=== PATIENT | male | born 1940 | race Caucasian/White ===

== ENCOUNTER 2019-03-30 09:55 | Observation (INO) | payer MEDICARE ==
[2019-03-30] MEDS ORDERED: PANTOPRAZOLE 40 MG/10 ML VIAL IVP STA (10:36)
[2019-03-30] MEDS ORDERED: SODIUM CHLORIDE 0.9% 1,000 ML IV STA (10:36)
--- NOTE | 2019-03-30 10:53 | ED ---
GI Bleed HPI - General Chief complaint: GI Bleed Stated complaint: Blood in stool Time Seen by Provider: 03/30/19 10:08 Source: patient, RN notes reviewed Mode of arrival: ambulatory Limitations: no limitations - History of Present Illness Initial comments: This 79-year-old male presents emergency Department with chief complaint of rectal bleeding. Patient states he was started on antibiotics a few days ago for cellulitis of his lower extremity which is more chronic issues secondary to swelling. Patient states that he was placed on Keflex and that he now has started to have a large amount of rectal bleeding. Patient states that it is bright red blood he does get occasionally get some abdominal cramping. Patient's had a colonoscopy in the past with mild findings of diverticulosis no other findings in which this was approximately a year and half ago. Patient does take Eliquis currently. Patient denies any fevers or chills. Patient states he feels that he has lost a large amount of blood in which he is had several episodes of bright red blood. - Related Data Home Medications Medication Instructions Recorded Confirmed Apixaban [Eliquis] 2.5 mg PO BID 03/30/19 03/30/19 Aspirin EC [Ecotrin Low Dose] 81 mg PO W/SUPPER 03/30/19 03/30/19 Cephalexin [Keflex] 500 mg PO Q6H 03/30/19 03/30/19 Focus Select 1 tab PO BID 03/30/19 03/30/19 Furosemide [Lasix] 60 mg PO DAILY 03/30/19 03/30/19 Metoprolol Succinate (ER) [Toprol 25 mg PO DAILY 03/30/19 03/30/19 Xl] Omeprazole 20 mg PO DAILY 03/30/19 03/30/19 Potassium Chloride [Klor-Con 20] 20 meq PO DAILY 03/30/19 03/30/19 Simvastatin [Zocor] 40 mg PO HS 03/30/19 03/30/19 Allergies Allergy/AdvReac Type Severity Reaction Status Date / Time No Known Allergies Allergy Verified 03/30/19 10:21 Review of Systems ROS Statement: Those systems with pertinent positive or pertinent negative responses have been documented in the HPI. ROS Other: All systems not noted in ROS Statement are negative. Past Medical History Past Medical History: Atrial Fibrillation, Heart Failure, GERD/Reflux, Hyperl ipidemia, Hypertension History of Any Multi-Drug Resistant Organisms: None Reported Past Surgical History: Cholecystectomy, Coronary Bypass/CABG Additional Past Surgical History / Comment(s): CABG (4 vessel) 1997 Past Psychological History: No Psychological Hx Reported Smoking Status: Never smoker Past Alcohol Use History: Occasional Past Drug Use History: None Reported General Exam Limitations: no limitations General appearance: alert, in no apparent distress Head exam: Present: atraumatic, normocephalic, normal inspection Eye exam: Present: normal appearance, PERRL, EOMI. Absent: scleral icterus, con junctival injection, periorbital swelling ENT exam: Present: normal exam, mucous membranes moist Neck exam: Present: normal inspection. Absent: tenderness, meningismus, lymphadenopathy Respiratory exam: Present: normal lung sounds bilaterally. Absent: respiratory distress, wheezes, rales, rhonchi, stridor Cardiovascular Exam: Present: normal rhythm, tachycardia, normal heart sounds. Absent: systolic murmur, diastolic murmur, rubs, gallop, clicks GI/Abdominal exam: Present: soft, normal bowel sounds. Absent: distended, tenderness, guarding, rebound, rigid Course Vital Signs 03/30/19 03/30/19 09:59 11:00 Temperature 97.6 F Pulse Rate 105 H 89 Respiratory 18 18 Rate Blood Pressure 144/93 115/89 O2 Sat by Pulse 96 92 L Oximetry Medical Decision Making - Medical Decision Making 79-year-old male presents emergency department for rectal bleeding. Patient does have bright red blood per rectum emergency department. Hemoglobin is stable patient will be admitted secondary to GI bleed with anticoagulants on board. - Lab Data Result diagrams: 03/30/19 10:55 03/30/19 10:55 Lab Results 03/30/19 03/30/19 03/30/19 Range/Units 10:41 10:55 10:55 WBC 11.6 H (3.8-10.6) k/uL RBC 5.31 (4.30-5.90) m/uL Hgb 16.7 (13.0-17.5) gm/dL Hct 50.2 (39.0-53.0) % MCV 94.6 (80.0-100.0) fL MCH 31.4 (25.0-35.0) pg MCHC 33.2 (31.0-37.0) g/dL RDW 12.7 (11.5-15.5) % Plt Count 348 (150-450) k/uL Neutrophils % 76 % Lymphocytes % 15 % Monocytes % 4 % Eosinophils % 2 % Basophils % 0 % Neutrophils # 8.8 H (1.3-7.7) k/uL Lymphocytes # 1.8 (1.0-4.8) k/uL Monocytes # 0.5 (0-1.0) k/uL Eosinophils # 0.2 (0-0.7) k/uL Basophils # 0.1 (0-0.2) k/uL PT (9.0-12.0) sec INR (<1.2) APTT (22.0-30.0) sec Sodium 142 (137-145) mmol/L Potassium 4.8 (3.5-5.1) mmol/L Chloride 108 H (98-107) mmol/L Carbon Dioxide 22 (22-30) mmol/L Anion Gap 12 mmol/L BUN 33 H (9-20) mg/dL Creatinine 1.01 (0.66-1.25) mg/dL Est GFR (CKD-EPI)AfAm 80 (>60 ml/min/1.73 sqM) Est GFR (CKD-EPI)NonAf 70 (>60 ml/min/1.73 sqM) Glucose 126 H (74-99) mg/dL Plasma Lactic Acid Nabil (0.7-2.0) mmol/L Calcium 9.9 (8.4-10.2) mg/dL Magnesium 2.0 (1.6-2.3) mg/dL Total Bilirubin 1.0 (0.2-1.3) mg/dL AST 16 L (17-59) U/L ALT 17 L (21-72) U/L Alkaline Phosphatase 104 (38-126) U/L Total Protein 7.2 (6.3-8.2) g/dL Albumin 4.5 (3.5-5.0) g/dL Stool Occult Blood Positive (Negative) 03/30/19 03/30/19 Range/Units 10:55 10:55 WBC (3.8-10.6) k/uL RBC (4.30-5.90) m/uL Hgb (13.0-17.5) gm/dL Hct (39.0-53.0) % MCV (80.0-100.0) fL MCH (25.0-35.0) pg MCHC (31.0-37.0) g/dL RDW (11.5-15.5) % Plt Count (150-450) k/uL Neutrophils % % Lymphocytes % % Monocytes % % Eosinophils % % Basophils % % Neutrophils # (1.3-7.7) k/uL Lymphocytes # (1.0-4.8) k/uL Monocytes # (0-1.0) k/uL Eosinophils # (0-0.7) k/uL Basophils # (0-0.2) k/uL PT 10.3 (9.0-12.0) sec INR 1.0 (<1.2) APTT 26.2 (22.0-30.0) sec Sodium (137-145) mmol/L Potassium (3.5-5.1) mmol/L Chloride (98-107) mmol/L Carbon Dioxide (22-30) mmol/L Anion Gap mmol/L BUN (9-20) mg/dL Creatinine (0.66-1.25) mg/dL Est GFR (CKD-EPI)AfAm (>60 ml/min/1.73 sqM) Est GFR (CKD-EPI)NonAf (>60 ml/min/1.73 sqM) Glucose (74-99) mg/dL Plasma Lactic Acid Nabil 1.6 (0.7-2.0) mmol/L Calcium (8.4-10.2) mg/dL Magnesium (1.6-2.3) mg/dL Total Bilirubin (0.2-1.3) mg/dL AST (17-59) U/L ALT (21-72) U/L Alkaline Phosphatase (38-126) U/L Total Protein (6.3-8.2) g/dL Albumin (3.5-5.0) g/dL Stool Occult Blood (Negative) Disposition Clinical Impression: GI bleed Disposition: ADMITTED IP TO THIS [facility] Condition: Stable Referrals: None,Stated [Primary Care Provider] - 1-2 days
[2019-03-30 11:09] LABS: Basophils # (A) 0.1 k/uL (0-0.2); Basophils % (A) 0 %; Eosinophils # (A) 0.2 k/uL (0-0.7); Eosinophils % (A) 2 %; HCT 50.2 % (39.0-53.0); HGB 16.7 gm/dL (13.0-17.5); Lymphocytes # (A) 1.8 k/uL (1.0-4.8); Lymphocytes % (A) 15 %; MCH 31.4 pg (25.0-35.0); MCHC 33.2 g/dL (31.0-37.0); MCV 94.6 fL (80.0-100.0); Monocytes # (A) 0.5 k/uL (0-1.0); Monocytes % (A) 4 %; Neutrophils # (A) 8.8 k/uL (1.3-7.7); Neutrophils % (A) 76 %; Platelet Count 348 k/uL (150-450); RBC 5.31 m/uL (4.30-5.90); RDW 12.7 % (11.5-15.5); WBC 11.6 k/uL (3.8-10.6)
[2019-03-30 11:20] LABS: Partial Thromboplastin Time 26.2 sec (22.0-30.0); Prothrombin Time 10.3 sec (9.0-12.0)
[2019-03-30 11:26] LABS: Albumin 4.5 g/dL (3.5-5.0); Calcium 9.9 mg/dL (8.4-10.2); Potassium 4.8 mmol/L (3.5-5.1); Total Protein 7.2 g/dL (6.3-8.2)
[2019-03-30] MEDS ORDERED: ACETAMINOPHEN TAB 325 MG TAB PO PRN (12:21)
[2019-03-30] MEDS ORDERED: NALOXONE 0.4 MG/ML 1 ML VIAL IV PRN (12:21)
[2019-03-30] MEDS ORDERED: ONDANSETRON 4 MG/2 ML VIAL IVP PRN (12:21)
--- NOTE | 2019-03-30 14:47 | P.HPIM ---
History of Present Illness H&P Date: 03/30/19 Chief Complaint: Bloody stools The patient is a 79-year-old male with a past with a history of coronary artery disease, essential hypertension, atrial fibrillation on anticoagulation with Eliquis that presents to ER with chief complaint of blood in his stools and diarrhea. Apparently the patient has been in normal state of health until this past Thursday when he presented to urgent care and was diagnosed with left lower extremity cellulitis and was started on Keflex, the patient started his medications on Thursday and since then has been having severe diarrhea changing to bloody stools over the last 5-7 bowel movements, the patient denies any severe nausea, he reported lower abdominal pain which is since resolved. The patient to his diarrhea to his Keflex and therefore discontinued it on Thursday, the patient denies any subjective fevers chills or night sweats. The patient denies any history of prior GI bleed, reports his last colonoscopy was approximately 2 years ago and at that time reported that he had polyps and diverticulosis, he also reports a history of hemorrhoids. The patient denies any significant NSAID use. In the ER had a conference and workup he had a positive stool occult, WBC count was 11.6 hemoglobin 16.7, Platelet 348, BUS was 33 creatinine 1.01. 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 Past Psychological History: No Psychological Hx Reported Smoking Status: Never smoker Past Alcohol Use History: Occasional Past Drug Use History: None Reported Medications and Allergies Home Medications Medication Instructions Recorded Confirmed Type Apixaban [Eliquis] 2.5 mg PO BID 03/30/19 03/30/19 History Aspirin EC [Ecotrin Low Dose] 81 mg PO W/SUPPER 03/30/19 03/30/19 History Cephalexin [Keflex] 500 mg PO Q6H 03/30/19 03/30/19 History Focus Select 1 tab PO BID 03/30/19 03/30/19 History Furosemide [Lasix] 60 mg PO DAILY 03/30/19 03/30/19 History Metoprolol Succinate (ER) [Toprol 25 mg PO DAILY 03/30/19 03/30/19 History Xl] Omeprazole 20 mg PO DAILY 03/30/19 03/30/19 History Potassium Chloride [Klor-Con 20] 20 meq PO DAILY 03/30/19 03/30/19 History Simvastatin [Zocor] 40 mg PO HS 03/30/19 03/30/19 History Allergies Allergy/AdvReac Type Severity Reaction Status Date / Time No Known Allergies Allergy Verified 03/30/19 10:21 Physical Exam Vitals: Vital Signs Temp Pulse Resp BP BP Pulse Ox 03/30/19 13:20 97.7 F 16 135/90 97 03/30/19 12:59 97.8 F 89 18 117/81 98 03/30/19 12:40 92 18 123/93 97 03/30/19 12:30 87 18 123/93 98 03/30/19 11:00 89 18 115/89 92 L 03/30/19 09:59 97.6 F 105 H 18 144/93 96 Intake and Output 03/29/19 03/30/19 03/30/19 22:59 06:59 14:59 Intake Total 520 Balance 520 Intake: Oral 520 Other: # Voids 1 Weight 102.058 kg Constitutional: No acute distress, conversant, pleasant Eyes: Anicteric sclerae, moist conjunctiva, no lid-lag, PERRLA ENMT: NC/AT,Oropharynx clear, no erythema, exudates Neck:Supple, FROM, no masses, or JVD, No carotid bruits; No thyromegaly Lungs: Clear to auscultation, Clear to percussion, Normal respiratory effort, no accessory muscle use Cardiovascular: Heart regular in rate and rhythm, No murmurs, gallops, or rubs no peripheral edema Abdominal: Soft Nontender, nom distended, no guarding, no rebound or rigidity, Normoactive bowel sounds No hepatomegaly, No splenomegaly, No palpable mass No abdominal wall hernia noted Skin: Normal temperature, tone, texture, turgor, No induration No subcutaneous nodules, No rash, lesions, No ulcers Extremities:No digital cyanosis No clubbing, Pedal pulses intact and symmetrical Radial pulses intact and symmetrical Normal gait and station, No calf tenderness Psychiatric: Alert and oriented to person, place and time, Appropriate affect Intact judgement Neuro: Muscles Strength 5/5 in all 4 extremities, Sensation to light touch grossly present throughout, Cranial nerves II-XII grossly intact. No focal sensory deficits Results CBC & Chem 7: 03/30/19 10:55 03/30/19 10:55 Labs: Abnormal Lab Results - Last 24 Hours (Table) 03/30/19 03/30/19 Range/Units 10:55 10:55 WBC 11.6 H (3.8-10.6) k/uL Neutrophils # 8.8 H (1.3-7.7) k/uL Chloride 108 H (98-107) mmol/L BUN 33 H (9-20) mg/dL Glucose 126 H (74-99) mg/dL AST 16 L (17-59) U/L ALT 17 L (21-72) U/L Assessment and Plan (1) GI bleed Current Visit: Yes Status: Acute Code(s): K92.2 - GASTROINTESTINAL HE MORRHAGE, UNSPECIFIED SNOMED Code(s): 98373714 (2) Atrial fibrillation Current Visit: Yes Status: Acute Code(s): I48.91 - UNSPECIFIED ATRIAL FIBRILLATION SNOMED Code(s): 66194999 (3) Coronary artery disease Current Visit: Yes Status: Acute Code(s): I25.10 - ATHSCL HEART DISEASE OF [place] CORONARY ARTERY W/O ANG PCTRS SNOMED Code(s): 61370889 (4) History of hemorrhoids Current Visit: Yes Status: Acute Code(s): Z87.19 - PERSONAL HISTORY OF OTHER DISEASES OF THE DIGESTIVE SYSTEM SNOMED Code(s): 390757911 (5) History of cellulitis Current Visit: Yes Status: Acute Code(s): Z87.2 - PERSONAL HISTORY OF D ISEASES OF THE SKIN, SUBCU SNOMED Code(s): 887500586 Plan: The patient is in observation anticipate a less than 2 midnight stay with concern for lower GI bleed after presenting with bloody stools positive Hemoccult noted in the ED.Given patient's history suspect bleeding hemorrhoid versus diverticular bleed, plans to consult GI for further evaluation patient possibly needs a repeat colonoscopy Hemoglobin stable, we'll continue to trend his CBC, continue Protonix. We'll hold his aspirin and DOAC, we will continue to follow the patient's clinical course. He reports a history of cellulitis and reports side effects to [place] being severe diarrhea, we will start the patient on clindamycin instead CODE STATUS: DO NOT RESUSCITATE Anticipated discharge 1-2 days Surrogate decision-maker : ET Prophylaxis SCDs and PPI therapy
[2019-03-30 18:37] LABS: Basophils % (A) 0 %; Eosinophils # (A) 0.2 k/uL (0-0.7); Eosinophils % (A) 2 %; HCT 46.7 % (39.0-53.0); HGB 15.4 gm/dL (13.0-17.5); Lymphocytes # (A) 1.8 k/uL (1.0-4.8); Lymphocytes % (A) 18 %; MCH 31.9 pg (25.0-35.0); MCHC 32.9 g/dL (31.0-37.0); MCV 96.9 fL (80.0-100.0); Monocytes # (A) 0.4 k/uL (0-1.0); Monocytes % (A) 4 %; Neutrophils # (A) 7.5 k/uL (1.3-7.7); Neutrophils % (A) 73 %; Platelet Count 334 k/uL (150-450); RBC 4.82 m/uL (4.30-5.90); RDW 12.9 % (11.5-15.5); WBC 10.3 k/uL (3.8-10.6)
[2019-03-30] MEDS: CLINDAMYCIN 150 MG CAP PO SCH (22:11)
[2019-03-30] MEDS: ATORVASTATIN 20 MG TAB PO SCH (22:11)
[2019-03-30] MEDS: VIT A,C & E-LUTEIN-MINERALS 1 EACH TAB PO SCH (22:12)
[2019-03-31 00:51] LABS: Basophils # (A) 0.1 k/uL (0-0.2); Basophils % (A) 1 %; Eosinophils # (A) 0.3 k/uL (0-0.7); Eosinophils % (A) 3 %; HCT 42.3 % (39.0-53.0); HGB 13.9 gm/dL (13.0-17.5); Lymphocytes # (A) 2.3 k/uL (1.0-4.8); Lymphocytes % (A) 25 %; MCH 31.6 pg (25.0-35.0); MCHC 32.9 g/dL (31.0-37.0); Mean Platelet Volume 6.8; Monocytes # (A) 0.6 k/uL (0-1.0); Monocytes % (A) 6 %; Neutrophils # (A) 5.8 k/uL (1.3-7.7); Neutrophils % (A) 63 %; Platelet Count 297 k/uL (150-450); RBC 4.41 m/uL (4.30-5.90); RDW 12.9 % (11.5-15.5); WBC 9.2 k/uL (3.8-10.6)
[2019-03-31] MEDS: CLINDAMYCIN 150 MG CAP PO SCH ×3 (08:51→21:50)
[2019-03-31] MEDS: FUROSEMIDE 20 MG TAB PO SCH (08:51)
[2019-03-31] MEDS: POTASSIUM CHLORIDE ER 20 MEQ TAB.ER PO SCH (08:52)
[2019-03-31] MEDS: PANTOPRAZOLE 40 MG TABLET PO SCH (08:52)
[2019-03-31] MEDS: VIT A,C & E-LUTEIN-MINERALS 1 EACH TAB PO SCH ×2 (08:52→20:41)
[2019-03-31] MEDS: METOPROLOL SUCCINATE (ER) 25 MG TAB.ER.24H PO SCH (08:52)
[2019-03-31 09:07] LABS: Basophils # (A) 0.1 k/uL (0-0.2); Basophils % (A) 1 %; Eosinophils # (A) 0.2 k/uL (0-0.7); Eosinophils % (A) 3 %; HCT 45.7 % (39.0-53.0); Lymphocytes # (A) 1.8 k/uL (1.0-4.8); Lymphocytes % (A) 25 %; MCH 31.2 pg (25.0-35.0); MCHC 32.8 g/dL (31.0-37.0); MCV 95.1 fL (80.0-100.0); Mean Platelet Volume 7.4; Monocytes # (A) 0.4 k/uL (0-1.0); Monocytes % (A) 6 %; Neutrophils # (A) 4.7 k/uL (1.3-7.7); Neutrophils % (A) 63 %; Platelet Count 317 k/uL (150-450); RBC 4.81 m/uL (4.30-5.90); RDW 13.5 % (11.5-15.5); WBC 7.4 k/uL (3.8-10.6)
--- NOTE | 2019-03-31 09:57 | P.CONS ---
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 Admission hemoglobin 16.7 presently 15. MCV 95. Platelets 317. White count 7.4. INR 1.0. BUN 33. Creatinine 1.0. FOBT positive. C. diff negative. Patient was placed on antibiotics Thursday for cellulitis that same day he developed bright red bowel movements multiple times without abdominal pain. He continued to pass red bowel movements over the last few days but now has tapered off since admission. Denies melena or hematochezia. Denies epigastric abdominal pain indigestion GERD. No recent EGD. Colonoscopy 2 years ago performed at [facility] by Dr. Cowan yen colonic diverticulosis and mild internal hemorrhoids. Presently no active bowel movement since admission. He feels well. Hungry. Hemoglobin 15. Review of Systems RConstitutional: Denies fever, chills, sweats, weight gain, or loss. HEENT: Negative for migraines, blurred vision or loss, earaches, drainage, tinnitus, oral mucosal lesions, dysphagia, or odynophagia. Cardiac: Negative for chest pain, arrhythmias, or palpitation. Respiratory: Negative for shortness of breath, hemoptysis, cough, or sputum production. Gastrointestinal: See HPI for pertinent findings. Genitourinary: Negative for hematuria, urgency, frequency, polyuria, dysuria, or penile discharge. Musculoskeletal: Negative for muscle aches, swelling, arthritis, and arthralgias. Neurologic: Negative for stroke or TIA. Endocrine: Negative for thyroid problems. Skin: Negative for rash or itching. 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 Past Psychological History: No Psychological Hx Reported Smoking Status: Never smoker Past Alcohol Use History: Occasional Past Drug Use History: None Reported Medications and Allergies Home Medications Medication Instructions Recorded Confirmed Type Apixaban [Eliquis] 2.5 mg PO BID 03/30/19 03/30/19 History Aspirin EC [Ecotrin Low Dose] 81 mg PO W/SUPPER 03/30/19 03/30/19 History Cephalexin [Keflex] 500 mg PO Q6H 03/30/19 03/30/19 History Focus Select 1 tab PO BID 03/30/19 03/30/19 History Furosemide [Lasix] 60 mg PO DAILY 03/30/19 03/30/19 History Metoprolol Succinate (ER) [Toprol 25 mg PO DAILY 03/30/19 03/30/19 History Xl] Omeprazole 20 mg PO DAILY 03/30/19 03/30/19 History Potassium Chloride [Klor-Con 20] 20 meq PO DAILY 03/30/19 03/30/19 History Simvastatin [Zocor] 40 mg PO HS 03/30/19 03/30/19 History Allergies Allergy/AdvReac Type Severity Reaction Status Date / Time No Known Allergies Allergy Verified 03/30/19 10:21 Physical Exam Vitals: Vital Signs Temp Pulse Pulse Resp BP BP Pulse Ox 03/31/19 07:00 98.3 F 94 16 131/84 95 03/31/19 00:12 97.9 F 79 15 114/74 96 03/30/19 20:14 97.4 F L 67 16 117/72 97 03/30/19 13:20 97.7 F 16 135/90 97 03/30/19 12:59 97.8 F 89 18 117/81 98 03/30/19 12:40 92 18 123/93 97 03/30/19 12:30 87 18 123/93 98 03/30/19 11:00 89 18 115/89 92 L 03/30/19 09:59 97.6 F 105 H 18 144/93 96 Intake and Output 03/30/19 03/31/19 03/31/19 22:59 06:59 14:59 Intake Total 520 Balance 520 Intake: Oral 520 Other: Voiding Method Toilet # Voids 2 2 # Bowel Movements 3 General appearance: The patient is alert, oriented, in no acute distress. HET: Head is normocephalic and atraumatic. Pupils are equal and reactive. Oropharynx is clear without lesions. Neck: Supple without lymphadenopathy. Trachea midline. Heart: S1 S2. Regular rate and rhythm. Lungs: No crackles or wheezes are heard. Abdomen: Soft, nontender, nondistended with bowel sounds. No peritoneal signs. No palpable organomegaly or masses. Extremities: Normal skin color and turgor. No cyanosis, rash, ulceration, clubbing, or edema. Radial and pedal pulses are 2/4 bilaterally. Neurological: No focal deficits. Strength and sensation are grossly intact. Results CBC & Chem 7: 03/31/19 08:15 03/30/19 10:55 Labs: Abnormal Lab Results - Last 24 Hours (Table) 03/30/19 03/30/19 Range/Units 10:55 10:55 WBC 11.6 H (3.8-10.6) k/uL Neutrophils # 8.8 H (1.3-7.7) k/uL Chloride 108 H (98-107) mmol/L BUN 33 H (9-20) mg/dL Glucose 126 H (74-99) mg/dL AST 16 L (17-59) U/L ALT 17 L (21-72) U/L Assessment and Plan (1) Hematochezia Narrative/Plan: 79-year-old man presents with acute GI bleed suspect colonic diverticular in nature as well as exacerbation of hemorrhoids. Patient reports colonoscopy 2 years ago with findings of yen colonic diverticulosis and mild internal hemorrhoids. Upper GI pathology cannot be entirely excluded however felt to be low within the differential. Current Visit: Yes Status: Acute Code(s): K92.1 - [place] SNOMED Code(s): 676935508 (2) Atrial fibrillation Current Visit: Yes Status: Acute Code(s): I48.91 - UNSPECIFIED ATRIAL FIBRILLATION SNOMED Code(s): 10365671 Plan: 1. Protonix 40 mg twice daily. CBC monitoring. Continue to hold anticoagulation. Full liquids. Anusol-HC QHS. If rectal bleeding returns or e xacerbates consult Dr. Cowan and proceed with tagged RBC scan. Inpatient EGD not planned at this time. Thank you for this kind referral and the opportunity to participate in the care of your patient. This consultation was discussed with Dr. Joshua. The impression and plan of care have been directed as dictated.
--- NOTE | 2019-03-31 14:49 | P.PN ---
Subjective Progress Note Date: 03/31/19 The patient doing well, seen and examined at bedside, has no complaints today denies any abdominal pain or nausea, hemoglobin maintaining steady at 15 this morning. patient seen by GI . Objective - Vital Signs Vital signs: Vital Signs Temp 97.8 F 03/31/19 14:00 Pulse 86 03/31/19 14:00 Resp 16 03/31/19 14:00 BP 105/72 03/31/19 14:00 Pulse Ox 97 03/31/19 14:00 Intake & Output 03/30/19 03/31/19 03/31/19 18:59 06:59 18:59 Intake Total 1040 100 Balance 1040 100 Weight 102.058 kg Intake: Oral 1040 100 Other: Voiding Method Toilet # Voids 1 2 2 # Bowel Movements 3 - Exam Constitutional: No acute distress, conversant, pleasant Eyes: Anicteric sclerae, moist conjunctiva, no lid-lag, PERRLA ENMT: NC/AT,Oropharynx clear, no erythema, exudates Neck:Supple, FROM, no masses, or JVD, No carotid bruits; No thyromegaly Lungs: Clear to auscultation, Clear to percussion, Normal respiratory effort, no accessory muscle use Cardiovascular: Heart regular in rate and rhythm, No murmurs, gallops, or rubs no peripheral edema Abdominal: Soft Nontender, nom distended, no guarding, no rebound or rigidity, Normoactive bowel sounds No hepatomegaly, No splenomegaly, No palpable mass No abdominal wall hernia noted Skin: Normal temperature, tone, texture, turgor, No induration No subcutaneous nodules, No rash, lesions, No ulcers Extremities:No digital cyanosis No clubbing, Pedal pulses intact and symmetrical Radial pulses intact and symmetrical Normal gait and station, No calf tenderness Psychiatric: Alert and oriented to person, place and time, Appropriate affect Intact judgement Neuro: Muscles Strength 5/5 in all 4 extremities, Sensation to light touch grossly present throughout, Cranial nerves II-XII grossly intact. No focal sensory deficits - Labs CBC & Chem 7: 03/31/19 08:15 03/30/19 10:55 Assessment and Plan (1) GI bleed Narrative/Plan: * Likely lower GI bleed secondary to diverticular disease versus hemorrhoids * Hemoglobin remained stable * Appreciate GI recommendations no plan for EGD at this time * We'll recheck CBC in the morning and if stable will discharge home Current Visit: Yes Status: Acute Code(s): K92.2 - GASTROINTESTINAL HEMORRHAGE, UNSPECIFIED SNOMED Code(s): 39714135 (2) Atrial fibrillation Narrative/Plan: * Continue to hold Eliquis Current Visit: Yes Status: Acute Code(s): I48.91 - UNSPECIFIED ATRIAL FIBRILLATION SNOMED Code(s): 94990631 (3) Coronary artery disease Current Visit: Yes Status: Acute Code(s): I25.10 - ATHSCL HEART DISEASE OF [place] CORONARY ARTERY W/O ANG PCTRS SNOMED Code(s): 09248547 (4) History of hemorrhoids Narrative/Plan: * Continue with Anusol HC cream * Appreciate recommendations Current Visit: Yes Status: Acute Code(s): Z87.19 - PERSONAL HISTORY OF OTHER DISEASES OF THE DIGESTIVE SYSTEM SNOMED Code(s): 341971274 (5) History of cellulitis Narrative/Plan: * C. diff negative continue with clindamycin orally Current Visit: Yes Status: Acute Code(s): Z87.2 - PERSONAL HISTORY OF DISEASES OF THE SKIN, SUBCU SNOMED Code(s): 597664608
[2019-03-31] MEDS: ATORVASTATIN 20 MG TAB PO SCH (20:40)
[2019-03-31] MEDS ORDERED: HYDROCORTISONE SUPPOSITORY 25 MG SUPP RECTAL SCH (21:00)
[2019-04-01] MEDS: CLINDAMYCIN 150 MG CAP PO SCH (07:53)
[2019-04-01] MEDS: VIT A,C & E-LUTEIN-MINERALS 1 EACH TAB PO SCH (07:54)
[2019-04-01] MEDS: METOPROLOL SUCCINATE (ER) 25 MG TAB.ER.24H PO SCH (07:54)
[2019-04-01] MEDS: FUROSEMIDE 20 MG TAB PO SCH (07:54)
[2019-04-01] MEDS: POTASSIUM CHLORIDE ER 20 MEQ TAB.ER PO SCH (07:55)
[2019-04-01] MEDS: PANTOPRAZOLE 40 MG TABLET PO SCH (07:55)
[2019-04-01 10:24] LABS: Basophils % (A) 1 %; Eosinophils # (A) 0.2 k/uL (0-0.7); Eosinophils % (A) 3 %; HCT 47.4 % (39.0-53.0); HGB 15.5 gm/dL (13.0-17.5); Lymphocytes # (A) 1.9 k/uL (1.0-4.8); Lymphocytes % (A) 26 %; MCH 31.1 pg (25.0-35.0); MCHC 32.6 g/dL (31.0-37.0); MCV 95.4 fL (80.0-100.0); Monocytes # (A) 0.4 k/uL (0-1.0); Monocytes % (A) 6 %; Neutrophils # (A) 4.6 k/uL (1.3-7.7); Neutrophils % (A) 62 %; Platelet Count 359 k/uL (150-450); RBC 4.97 m/uL (4.30-5.90); WBC 7.5 k/uL (3.8-10.6)
--- NOTE | 2019-04-01 11:47 | P.DS ---
Providers Date of admission: 03/30/19 12:46 Expected date of discharge: 04/01/19 Attending physician: Martha Tay DO Consults: 03/30/19 12:21 Consult Physician Urgent Consulting Provider: Clint Michaels Consult Reason/Comments: GI bleed Do you want consulting provider notified?: Yes Primary care physician: Stated None - Discharge Diagnosis(es) (1) Lower GI bleed Current Visit: Yes Status: Acute (2) Atrial fibrillation Current Visit: Yes Status: Acute (3) Coronary artery disease Current Visit: Yes Status: Acute (4) History of hemorrhoids Current Visit: Yes Status: Acute (5) History of cellulitis Current Visit: Yes Status: Acute Hospital Course: The patient is a 79-year-old male with a past medical history of atrial fibrillation on anticoagulation with eliquis that was admitted for concern for lower GI bleed after presenting with chief complaint of blood in his stools and a positive stool occult in the ER. No suspected that his GI bleed was secondary to diverticular bleed versus possible hemorrhoidal given his underlying diverticular disease and history of internal hemorrhoids the patient was monitored with serial hemoglobins, which remained stable without any signs of anemia. GI was consulted and results from the patient's prior colonoscopy at [facility] by Dr. Cowan were reviewed that showed pancolonic diverticulosis and mild internal hemorrhoids. The patient was started on Anusol HC and was monitored and had no further bloody bowel movements, he denied any symptoms of anemia and was subsequently discharged home in stable condition and instructed to follow-up with GI in 3 weeks. Patient was instructed to resume his ELIQUIS tomorrow. The patient's antibiotic was changed from Keflex to clindamycin for treatment of his lower extremity cellulitis. This discharge process took approximately 30 minutes. Focused exam GI: Soft nontender nondistended, normoactive bowel sounds all 4 quadrants, nonacute abdomen Patient Condition at Discharge: Stable Plan - Discharge Summary New Discharge Prescriptions: New Hydrocortisone Suppository [Anusol-Hc] 25 mg RECTAL HS #14 supp Clindamycin [Cleocin] 450 mg PO TID #12 cap Continue Focus Select 1 tab PO BID Simvastatin [Zocor] 40 mg PO HS Potassium Chloride [Klor-Con 20] 20 meq PO DAILY Metoprolol Succinate (ER) [Toprol XL] 25 mg PO DAILY Furosemide [Lasix] 60 mg PO DAILY Aspirin EC [Ecotrin Low Dose] 81 mg PO W/SUPPER Apixaban [Eliquis] 2.5 mg PO BID Omeprazole 20 mg PO DAILY Discontinued Cephalexin [Keflex] 500 mg PO Q6H Discharge Medication List Apixaban [Eliquis] 2.5 mg PO BID 03/30/19 [History] Aspirin EC [Ecotrin Low Dose] 81 mg PO W/SUPPER 03/30/19 [History] Focus Select 1 tab PO BID 03/30/19 [History] Furosemide [Lasix] 60 mg PO DAILY 03/30/19 [History] Metoprolol Succinate (ER) [Toprol XL] 25 mg PO DAILY 03/30/19 [History] Omeprazole 20 mg PO DAILY 03/30/19 [History] Potassium Chloride [Klor-Con 20] 20 meq PO DAILY 03/30/19 [History] Simvastatin [Zocor] 40 mg PO HS 03/30/19 [History] Clindamycin [Cleocin] 450 mg PO TID #12 cap 04/01/19 [Rx] Hydrocortisone Suppository [Anusol-Hc] 25 mg RECTAL HS #14 supp 04/01/19 [Rx] Follow up Appointment(s)/Referral(s): Shameka Joshua MD [STAFF PHYSICIAN] - 05/19/19 3:00 pm None,Stated [Primary Care Provider] - 1-2 days Patient Instructions/Handouts: Diverticulitis Diet (DC) Activity/Diet/Wound Care/Special Instructions: Resume Eliquis tomorrow 04/02/19 Discharge Disposition: HOME SELF-CARE
[2019-04-01 14:35] VITALS: BP 103/73; PULSE 69; RESP 16; TEMP 98.1
== END 2019-04-01 15:31 | disposition home or self-care (01) ==
LOC: EC 09:55 → 4SSUR 12:46
PROVIDERS: ADMIT Internal Medicine; ATTEND Internal Medicine
DX: K92.1 Melena (principal); E78.5 Hyperlipidemia, unspecified; L03.116 Cellulitis of left lower limb; I48.91 Unspecified atrial fibrillation; I11.0 Hypertensive heart disease with heart failure; I25.10 Atherosclerotic heart disease of native coronary artery without angina pectoris; I50.9 Heart failure, unspecified; K21.9 Gastro-esophageal reflux disease without esophagitis; Z95.1 Presence of aortocoronary bypass graft; Z87.11 Personal history of peptic ulcer disease; Z79.82 Long term (current) use of aspirin; Z79.899 Other long term (current) drug therapy; Z79.01 Long term (current) use of anticoagulants; Z86.010 Personal history of colon polyps; Z87.19 Personal history of other diseases of the digestive system; Z90.49 Acquired absence of other specified parts of digestive tract; Z94.7 Corneal transplant status; Z66 Do not resuscitate
CPT/HCPCS: 96361; 96374; 99285; 36415; 86900; 86901; 80053; 83605; 83735; 85025 ×3; 85610; 85730; 86850; 82272; 87324; G0378 ×3; C9113

== ENCOUNTER → 2019-07-28 | Outpatient (CLI) | payer MEDICARE ==
--- NOTE | 2019-07-28 15:11 | US ---
EXAMINATION TYPE: US venous doppler duplex LE DATE OF EXAM: 07/28/2019 3:06 PM COMPARISON: NONE CLINICAL HISTORY: M79.661;R22.41. SIDE PERFORMED: Bilateral TECHNIQUE: The lower extremity deep venous system is examined utilizing real time linear array sonog mei with graded compression, doppler sonography and color-flow sonography. VESSELS IMAGED: External Iliac Vein (EIV) Common Femoral Vein Deep Femoral Vein Greater Saphenous Vein * Femoral Vein Popliteal Vein Small Saphenous Vein * Proximal Calf Veins (* superficial vessels) Grayscale, color doppler, spectral doppler imaging performed of the deep veins of the lower extremiti es. There is normal flow, compressibility, vascular waveforms. Right Leg: Negative for DVT Left Leg: Negative for DVT IMPRESSION: No sonographic evidence of deep venous thrombosis within either the bilateral lower extr emities.
== END | disposition home or self-care (01) ==
LOC: RADUSWWP 14:16
PROVIDERS: ATTEND Internal Medicine Interventional Cardiology
DX: M79.661 Pain in right lower leg (principal); R22.41 Localized swelling, mass and lump, right lower limb; R22.31 Localized swelling, mass and lump, right upper limb
CPT/HCPCS: 93970

== ENCOUNTER → 2019-07-28 | Outpatient (CLI) | payer MEDICARE ==
--- NOTE | 2019-07-28 15:27 | XR ---
EXAMINATION TYPE: XR knee limited RT DATE OF EXAM: 07/28/2019 CLINICAL HISTORY: Fall injury 2 months ago with pain for 10 days. TECHNIQUE: Frontal and lateral views of the right knee are obtained. COMPARISON: None. FINDINGS: There is no acute fracture/dislocation evident in the right knee. Mild tricompartment join t space loss. Posterior vascular calcification. IMPRESSION: As above.
== END | disposition home or self-care (01) ==
LOC: RADXRMAIN 15:04
PROVIDERS: ATTEND Family Medicine
DX: M25.861 Other specified joint disorders, right knee (principal)

== ENCOUNTER → 2020-03-02 | Outpatient (CLI) | payer MEDICARE ==
[2020-03-02 12:04] LABS: HCT 51.8 % (39.0-53.0); HGB 16.8 gm/dL (13.0-17.5); MCH 32.2 pg (25.0-35.0); MCHC 32.4 g/dL (31.0-37.0); MCV 99.5 fL (80.0-100.0); Mean Platelet Volume 7.7; Platelet Count 301 k/uL (150-450); RBC 5.21 m/uL (4.30-5.90); RDW 12.5 % (11.5-15.5); WBC 7.4 k/uL (3.8-10.6)
[2020-03-02 18:44] LABS: African American GFR (CKD) 72.6 (60.0-200.0); Anion Gap 8.1 mmol/L (4.00-12.00); BUN/Creat Ratio 21.82 Ratio (12.00-20.00); Calcium 9.8 mg/dL (8.7-10.3); Carbon Dioxide 28.9 mmol/L (21.6-31.8); Non-African American GFR(CKD) 62.6 (60.0-200.0); Potassium 5.3 mmol/L (3.5-5.5)
== END | disposition home or self-care (01) ==
LOC: LABWHC1 10:52
PROVIDERS: ATTEND Internal Medicine Interventional Cardiology
DX: I25.10 Atherosclerotic heart disease of native coronary artery without angina pectoris (principal)
CPT/HCPCS: 36415; 80048; 84443; 85027

== ENCOUNTER → 2021-08-26 | Outpatient (CLI) | payer MEDICARE ==
[2021-08-26 14:26] LABS: HCT 49.3 % (39.6-50.0); HGB 16.3 g/dL (13.0-17.0); MCH 32.2 pg (27.0-32.0); MCHC 33.1 g/dL (32.0-37.0); MCV 97.4 fL (80.0-97.0); Mean Platelet Volume 10.2 fL (9.5-12.2); Platelet Count 274 X 10*3/uL (140-440); RBC 5.06 X 10*6/uL (4.40-5.60); RDW 12.5 % (11.5-14.5); WBC 7.39 X 10*3/uL (4.50-10.00)
[2021-08-26 15:18] LABS: ALT 18 U/L (10-49); AST 21 U/L (14-35); African American GFR (CKD) 68.5 (60.0-200.0); Albumin 4.5 g/dL (3.8-4.9); Alkaline Phosphatase 102 U/L (41-126); BUN/Creat Ratio 17.19 Ratio (12.00-20.00); Blood Urea Nitrogen 19.6 mg/dL (9.0-27.0); Calcium 9.8 mg/dL (8.7-10.3); Carbon Dioxide 26.2 mmol/L (20.0-27.5); Chloride 102 mmol/L (96-109); Chol/HDL Ratio 4.38 Ratio; Globulin 2.2 g/dL (1.6-3.3); Glucose 110 mg/dL (70-110); LDL Cholesterol,Calculated 68.3 mg/dL (0.0-131.0); Magnesium 2.1 mg/dL (1.5-2.4); Non-African American GFR(CKD) 59.1 (60.0-200.0); Potassium 5.2 mmol/L (3.5-5.5); Sodium 141 mmol/L (135-145); Total Protein 6.7 g/dL (6.2-8.2)
== END | disposition home or self-care (01) ==
LOC: LABWHC1 09:30
PROVIDERS: ATTEND Nurse Practitioner Adult Health
DX: I10 Essential (primary) hypertension (principal); E78.5 Hyperlipidemia, unspecified; I48.0 Paroxysmal atrial fibrillation
CPT/HCPCS: 36415; 80053; 80061; 83721; 83735; 84443; 85027

== ENCOUNTER → 2022-03-31 | Outpatient (CLI) | payer MEDICARE ==
[2022-03-31 14:39] LABS: ALT 12 U/L (10-49); AST 21 U/L (14-35); Albumin 4.3 g/dL (3.8-4.9); Albumin/Globulin Ratio 1.65 (1.60-3.17); Alkaline Phosphatase 97 U/L (41-126); Blood Urea Nitrogen 22.2 mg/dL (9.0-27.0); Calcium 9.4 mg/dL (8.7-10.3); Carbon Dioxide 27.5 mmol/L (20.0-27.5); Chloride 102 mmol/L (96-109); Chol/HDL Ratio 3.79 Ratio; Globulin 2.6 g/dL (1.6-3.3); Glucose 105 mg/dL (70-110); Iron 82 ug/dL (65-175); LDL Cholesterol,Calculated 59.3 mg/dL (0.0-131.0); Magnesium 2.2 mg/dL (1.5-2.4); Non-African American GFR(CKD) 55.2 (60.0-200.0); Potassium 5.2 mmol/L (3.5-5.5); Sodium 139 mmol/L (135-145); Total Iron Binding Capacity 347 ug/dL (228-460); Total Protein 6.9 g/dL (6.2-8.2)
== END | disposition home or self-care (01) ==
LOC: LABWHC1 08:39
PROVIDERS: ATTEND Family Medicine
DX: R53.81 Other malaise (principal); E78.5 Hyperlipidemia, unspecified
CPT/HCPCS: 36415; 80053; 80061; 82306; 82607; 82728; 82746; 83540; 83550; 83735; 84439; 84443

== ENCOUNTER 2022-05-30 07:04 | Inpatient (IN) | payer MEDICARE ==
[2022-05-30] MEDS ORDERED: SODIUM CHLORIDE 0.9% 500 ML 500 ML IV STA (07:18)
[2022-05-30] MEDS ORDERED: ACETAMINOPHEN TAB 500 MG TAB PO STA (07:18)
--- NOTE | 2022-05-30 07:40 | ED ---
General Adult HPI - General Chief complaint: Fall Stated complaint: fall Time Seen by Provider: 05/30/22 07:08 Source: patient, RN notes reviewed, old records reviewed Mode of arrival: EMS Limitations: no limitations - History of Present Illness Initial comments: 82-year-old male presents with generalized weakness and fall. Patient states that he began feeling weak last night, had gone to bed 12. He woke up this morning with the bathroom, he fell in the bathroom without significant injury but was unable to get up. Paramedics were called and the patient was brought in for evaluation. He is found to have fever in the emergency department. He de nies fever or chills, denies cough or URI symptoms. Denies abdominal pain or dysuria. No chest or abdominal pain. No focal numbness or weakness. There was head injury and the patient is on blood thinners. - Related Data Home Medications Medication Instructions Recorded Confirmed Apixaban [Eliquis] 2.5 mg PO BID 03/30/19 05/30/22 Aspirin EC [Ecotrin Low Dose] 81 mg PO W/SUPPER 03/30/19 05/30/22 Omeprazole 20 mg PO DAILY 03/30/19 05/30/22 Simvastatin [Zocor] 40 mg PO W/SUPPER 03/30/19 05/30/22 Focus Select Areds2 1 tab PO BID 05/30/22 05/30/22 Furosemide [Lasix] 60 mg PO DAILY 05/30/22 05/30/22 Gabapentin 800 mg PO ACHS 05/30/22 05/30/22 Spironolactone [Aldactone] 50 mg PO DAILY 05/30/22 05/30/22 prednisoLONE ACETATE 1% OPHTH 1 drop LEFT EYE MOWEFR@2100 05/30/22 05/30/22 [Pred Forte 1%] Allergies Allergy/AdvReac Type Severity Reaction Status Date / Time No Known Allergies Allergy Verified 05/30/22 11:46 Review of Systems ROS Statement: Those systems with pertinent positive or pertinent negative responses have been documented in the HPI. ROS Other: All systems not noted in ROS Statement are negative. 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 Absent: tenderness, meningismus Respiratory exam: Present: normal lung sounds bilaterally. Absent: respiratory distress, wheezes Cardiovascular Exam: Present: normal rhythm, tachycardia GI/Abdominal exam: Present: soft. Absent: distended, tenderness, guarding Extremities exam: Present: pedal edema, other (Bilateral erythema) Neurological exam: Present: alert, oriented X3, CN II-XII intact. Absent: motor sensory deficit Skin exam: Present: warm, dry Course Vital Signs 05/30/22 05/30/22 05/30/22 07:13 09:17 10:00 Temperature 100.2 F H 98.6 F 98.7 F Pulse Rate 112 H 88 80 Respiratory 18 17 20 Rate Blood Pressure 118/90 71/51 78/59 O2 Sat by Pulse 96 98 95 Oximetry 05/30/22 12:26 Temperature Pulse Rate 68 Respiratory 16 Rate Blood Pressure 85/55 O2 Sat by Pulse 96 Oximetry EKG Findings - EKG Comments: EKG Findings:: Atrial fibrillation rate of 95 QRS duration 75, QTC 386, no ST segment elevation. Medical Decision Making - Medical Decision Making 82-year-old male presenting for evaluation of weakness, fever chills. Patient did have a fall, with head injury on eliquis. Patient did not have loss conscious. Head CT negative for intracranial hemorrhage or mass effect, cervical spine negative for fracture subluxation, chest x-ray and pelvis x-ray negative for traumatic injury. Workup is initiated including laboratory testing, patient has a significantly elevated white blood cell count, elevated lactic acid of 5.4. He does not have any specific symptoms including no cough, no URI symptoms, no abdominal pain, no dysuria or hematuria. Patient is empiri natalio started on antibiotics, 2 g of ceftriaxone as well as IV fluids. His blood pressure does respond to IV fluids in the emergency department. He remains alert. Initially he has an elevated troponin and acute kidney injury. This level will be trended. He is anticoagulated at baseline and not having any symptoms of acute coronary syndrome. Case discussed with Dr. Berman, who will admit. - Lab Data Result diagrams: 05/30/22 07:22 05/30/22 09:30 Lab Results 05/30/22 05/30/22 05/30/22 Range/Units 07:22 07:22 07:22 WBC 27.8 H (3.8-10.6) k/uL RBC 5.39 (4.30-5.90) m/uL Hgb 17.5 (13.0-17.5) gm/dL Hct 53.1 H (39.0-53.0) % MCV 98.5 (80.0-100.0) fL MCH 32.6 (25.0-35.0) pg MCHC 33.0 (31.0-37.0) g/dL RDW 12.5 (11.5-15.5) % Plt Count 267 (150-450) k/uL MPV 8.4 Neutrophils % (Manual) 83 % Band Neuts % (Manual) 5 % Lymphocytes % (Manual) 4 % Monocytes % (Manual) 8 % Metamyelocytes % 1 % Neutrophils # (Manual) 24.40 H (1.3-7.7) k/uL Lymphocytes # (Manual) 1.11 (1.0-4.8) k/uL Monocytes # (Manual) 2.22 H (0-1.0) k/uL Metamyelocytes # (Man) 0.28 H (0) k/uL Nucleated RBCs 0 (0-0) /100 WBC Manual Slide Review Performed PT 11.7 (9.0-12.0) sec INR 1.1 (<1.2) APTT 25.7 (22.0-30.0) sec Sodium (137-145) mmol/L Potassium (3.5-5.1) mmol/L Chloride (98-107) mmol/L Carbon Dioxide (22-30) mmol/L Anion Gap mmol/L BUN (9-20) mg/dL Creatinine (0.66-1.25) mg/dL Est GFR (CKD-EPI)AfAm (>60 ml/min/1.73 sqM) Est GFR (CKD-EPI)NonAf (>60 ml/min/1.73 sqM) Glucose (74-99) mg/dL Plasma Lactic Acid Nabil 5.4 H* (0.7-2.0) mmol/L Calcium (8.4-10.2) mg/dL Magnesium (1.6-2.3) mg/dL Total Bilirubin (0.2-1.3) mg/dL AST (17-59) U/L ALT (4-49) U/L Alkaline Phosphatase (38-126) U/L Troponin I (0.000-0.034) ng/mL Total Protein (6.3-8.2) g/dL Albumin (3.5-5.0) g/dL Coronavirus (PCR) (Not Detectd) 05/30/22 05/30/22 05/30/22 Range/Units 09:04 09:30 09:30 WBC (3.8-10.6) k/uL RBC (4.30-5.90) m/uL Hgb (13.0-17.5) gm/dL Hct (39.0-53.0) % MCV (80.0-100.0) fL MCH (25.0-35.0) pg MCHC (31.0-37.0) g/dL RDW (11.5-15.5) % Plt Count (150-450) k/uL MPV Neutrophils % (Manual) % Band Neuts % (Manual) % Lymphocytes % (Manual) % Monocytes % (Manual) % Metamyelocytes % % Neutrophils # (Manual) (1.3-7.7) k/uL Lymphocytes # (Manual) (1.0-4.8) k/uL Monocytes # (Manual) (0-1.0) k/uL Metamyelocytes # (Man) (0) k/uL Nucleated RBCs (0-0) /100 WBC Manual Slide Review PT (9.0-12.0) sec INR (<1.2) APTT (22.0-30.0) sec Sodium 136 L (137-145) mmol/L Potassium 5.1 (3.5-5.1) mmol/L Chloride 102 (98-107) mmol/L Carbon Dioxide 22 (22-30) mmol/L Anion Gap 12 mmol/L BUN 37 H (9-20) mg/dL Creatinine 1.96 H (0.66-1.25) mg/dL Est GFR (CKD-EPI)AfAm 35 (>60 ml/min/1.73 sqM) Est GFR (CKD-EPI)NonAf 31 (>60 ml/min/1.73 sqM) Glucose 112 H (74-99) mg/dL Plasma Lactic Acid Nabil (0.7-2.0) mmol/L Calcium 9.0 (8.4-10.2) mg/dL Magnesium 1.3 L (1.6-2.3) mg/dL Total Bilirubin 0.8 (0.2-1.3) mg/dL AST 34 (17-59) U/L ALT 19 (4-49) U/L Alkaline Phosphatase 93 (38-126) U/L Troponin I 0.201 H* (0.000-0.034) ng/mL Total Protein 5.7 L (6.3-8.2) g/dL Albumin 3.6 (3.5-5.0) g/dL Coronavirus (PCR) Not Detected (Not Detectd) Critical Care Time Critical Care Time: Yes Total Critical Care Time: 35 Disposition Clinical Impression: Sepsis, Elevated troponin, Acute kidney injury Disposition: ADMITTED IP TO THIS [facility] Condition: Serious Is patient prescribed a controlled substance at d/c from ED?: No Time of Disposition: 11:04
--- NOTE | 2022-05-30 08:15 | CT ---
EXAMINATION TYPE: CT brain tabby moreau DATE OF EXAM: 05/30/2022 COMPARISON: None HISTORY: 82-year-old male with pain after fall CT DLP: 1754.9 mGycm Automated exposure control for dose reduction was used. Technique: Examination of the head was done in axial plane without intravenous contrast. Coronal and sagittal reconstructions performed. CT of the cervical spine was obtained in axial plane without intravenous injection of contrast mater ial. Coronal and sagittal reformatted images were obtained from the axial views for evaluation of f ractures, spinal alignment and canal. FINDINGS: Head: There is no evidence of acute intracranial hemorrhage, acute ischemic changes, mass, mass-effect, or extra-axial fluid collection. There is no effacement of cerebral sulci or basal subarachnoid cister ns. There is no hydrocephalus. There is no midline shift. Nguyễn-white matter distinction is preserv ed. Either partial volume averaging or a 5 mm saccular aneurysm A2 segment anterior cerebral artery along the midline, axial image 29. Multiple moderate patchy white matter hypodensities suggesting chronic small vessel ischemic disease. Undulating nasal septum. Paranasal sinuses and mastoid air cells appear clear. Orbits and globes are intact. Cervical spine: No craniocervical junction unremarkable E, predental space widening, or prevertebral soft tissue swel ling. Degenerative change of the C1 dens articulation. Moderate disc/endplate degenerative change especially C3-C4 and C5-C7 levels. Hypertrophic facet arthropathy and scattered uncovertebral joint arthropathy. Degenerative grade 1 retrolisthesis C3-C4. Along with the subluxation, disc osteophyte complex here c ontributes to moderate narrowing of the spinal canal. Degenerative grade 1 anterolisthesis C4-C5 and grade 1 retrolisthesis C5-C6. No acute fracture seen of the cervical spine.. Moderate bilateral neuroforaminal stenosis at C3-C4 and C5-C6. Mild on the left at C6-C7. Sagittal and coronal reformatted images confirm above findings. COMBINED IMPRESSION: 1. Either partial volume averaging versus a 5 mm saccular aneurysm A2 segment MARV along the midline, axial image 29. Patient can have a follow-up CTA or MRA [place] when able. 2. No acute intracranial abnormality seen. Mild to moderate burden of chronic small vessel ischemic d isease. 3. Moderate multilevel spondylotic change in the cervical spine with degenerative grade 1 spondylolis thesis C3-C4, C4-C5, C5-C6. Moderate secondary spinal canal stenosis at C3-C4. No acute fracture of t he cervical spine.
--- NOTE | 2022-05-30 08:23 | XR ---
EXAMINATION TYPE: XR chest 2V DATE OF EXAM: 05/30/2022 COMPARISON: NONE HISTORY: Shortness of breath TECHNIQUE: Frontal and lateral views of the chest are obtained. FINDINGS: Scattered senescent parenchymal changes noted. There is pulmonary venous congestion with mild cardiomegaly. There may be interstitial edema. No defi nite focal infiltrates seen. Correlate clinically. Mediastinal structures are stable and grossly unremarkable. No evidence for hilar prominence. Degenerative changes dorsal spine. IMPRESSION: 1. There is pulmonary venous congestion with mild cardiomegaly. There may be interstitial edema. No d efinite focal infiltrates seen. Correlate clinically.
--- NOTE | 2022-05-30 09:02 | XR ---
EXAMINATION TYPE: XR pelvis AP view DATE OF EXAM: 05/30/2022 CLINICAL HISTORY: pain TECHNIQUE: Single view the pelvis is submitted. FINDINGS: No evidence for fracture, dislocation or bony lesion. Joint spaces are well-preserved. S I joints appear symmetric. Prostate seeds are in place. IMPRESSION: 1. No acute fracture or dislocation seen. ICD 10 NO FRACTURE, INITIAL EVALUATION
[2022-05-30 09:09] LABS: HCT 53.1 % (39.0-53.0); HGB 17.5 gm/dL (13.0-17.5); MCH 32.6 pg (25.0-35.0); MCV 98.5 fL (80.0-100.0); Mean Platelet Volume 8.4; Platelet Count 267 k/uL (150-450); RBC 5.39 m/uL (4.30-5.90); RDW 12.5 % (11.5-15.5); WBC 27.8 k/uL (3.8-10.6)
[2022-05-30 09:14] LABS: INR 1.1 (<1.2); Partial Thromboplastin Time 25.7 sec (22.0-30.0); Prothrombin Time 11.7 sec (9.0-12.0)
[2022-05-30] MEDS ORDERED: cefTRIAXone IN SWFI 1,000 MG/10 ML SYRINGE IVP STA (09:30)
[2022-05-30] MEDS ORDERED: SODIUM CHLORIDE 0.9% 500 ML 500 ML IV ONE ×2 (09:31→11:49)
[2022-05-30 09:41] LABS: Band Neutrophils % 5 %; Lymphocytes # (M) 1.11 k/uL (1.0-4.8); Metamyelocytes # (M) 0.28 k/uL (0); Metamyelocytes % 1 %; Monocytes # (M) 2.22 k/uL (0-1.0); Neutrophils % (M) 83 %; Nucleated Red Blood Cells 0 /100 WBC (0-0); Total Cells Counted 200
[2022-05-30] MEDS: SODIUM CHLORIDE 0.9% 1,000 ML IV SCH ×2 (09:55→17:44)
[2022-05-30 10:08] LABS: Albumin 3.6 g/dL (3.5-5.0); Magnesium 1.3 mg/dL (1.6-2.3); Potassium 5.1 mmol/L (3.5-5.1); Total Bilirubin 0.8 mg/dL (0.2-1.3); Total Protein 5.7 g/dL (6.3-8.2)
[2022-05-30] MEDS ORDERED: NALOXONE 0.4 MG/ML 1 ML VIAL IV PRN ×2 (10:37→15:26)
[2022-05-30] MEDS ORDERED: MAGNESIUM SULFATE-D5W PMX 1 GM in DEXTROSE/WATER 1 100ML.BAG IVPB ONE (11:49)
[2022-05-30 12:30] LABS: Appearance,Urine Cloudy (Clear); Bacteria,Urine Rare /hpf; Bilirubin,Urine Negative (Negative); Blood,Urine Large (Negative); Color,Urine Yellow; Glucose,Urine (UA) Negative (Negative); Hyaline Casts,Urine 21 /lpf (0-2); Ketones,Urine Negative (Negative); Leukocyte Esterase,Urine Negative (Negative); Mucus,Urine Rare /hpf; Nitrite,Urine Negative (Negative); Protein,Urine Trace (Negative); RBC,Urine 66 /hpf (0-5); Specific Gravity,Urine 1.014 (1.001-1.035); Squamous Epithelial Cell,Urine <1 /hpf (0-4); Urobilinogen,Urine <2.0 mg/dL (<2.0); WBC,Urine 6 /hpf (0-5)
[2022-05-30] MEDS ORDERED: VANCOMYCIN IV PER PHARMACY 1 EACH MISC MISCELLANE PRN (12:32)
[2022-05-30] MEDS ORDERED: IOPAMIDOL CONTRAST (ORAL USE) VIAL PO PRN (12:57)
[2022-05-30] MEDS ORDERED: VANCOMYCIN 1,750 MG in SODIUM CHLORIDE 0.9% 500 ML 500 ML IVPB ONE (13:00)
--- NOTE | 2022-05-30 15:43 | P.HPIM ---
History of Present Illness H&P Date: 05/30/22 Chief Complaint: fever 82-year-old male with history of CAD, atrial fibrillation on anticoagulation with eliquis, hypertension, hyperlipidemia presents with generalized weakness and fall. Due to weakness he fell today on his back. He states he has no energy. In addition he has been having fevers and chills. Denied head trauma with fall. Denies any focal pain. No focal weakness or numbness. Denies cough or URI symptoms. Denies abdominal pain or dysuria. No chest pain. He has been sick since yesterday. In the emergency department he was found to have a fever of 100.2. He was also found to have cellulitic changes in the right lower extremity. Labs were sign ificant for leukocytosis of 27,000. Sodium 136, creatinine 1.96, BUN 37, magnesium 1.3, troponin 0.2, repeat 0.19. Lactic acid 3.5. Chest x-ray showed pulmonary vascular congestion with interstitial edema, no focal infiltrates. Head and neck computed tomography scan negative for acute dislocation, fracture or any acute event. Pelvic x-ray was negative for any fractures. 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 Past Psychological History: No Psychological Hx Reported Past Alcohol Use History: Occasional Past Drug Use History: None Reported Medications and Allergies Home Medications Medication Instructions Recorded Confirmed Type Apixaban [Eliquis] 2.5 mg PO BID 03/30/19 05/30/22 History Aspirin EC [Ecotrin Low Dose] 81 mg PO W/SUPPER 03/30/19 05/30/22 History Omeprazole 20 mg PO DAILY 03/30/19 05/30/22 History Simvastatin [Zocor] 40 mg PO W/SUPPER 03/30/19 05/30/22 History Focus Select Areds2 1 tab PO BID 05/30/22 05/30/22 History Furosemide [Lasix] 60 mg PO DAILY 05/30/22 05/30/22 History Gabapentin 800 mg PO ACHS 05/30/22 05/30/22 History Spironolactone [Aldactone] 50 mg PO DAILY 05/30/22 05/30/22 History prednisoLONE ACETATE 1% OPHTH 1 drop LEFT EYE MOWEFR@2100 05/30/22 05/30/22 History [Pred Forte 1%] Allergies Allergy/AdvReac Type Severity Reaction Status Date / Time No Known Allergies Allergy Verified 05/30/22 11:46 Physical Exam Vitals: Vital Signs Temp Pulse Resp BP Pulse Ox 05/30/22 15:00 60 16 87/40 98 05/30/22 14:00 68 16 89/40 98 05/30/22 12:26 68 16 85/55 96 05/30/22 10:00 98.7 F 80 20 78/59 95 05/30/22 09:17 98.6 F 88 17 71/51 98 05/30/22 07:13 100.2 F H 112 H 18 118/90 96 Intake and Output 05/30/22 05/30/22 05/30/22 06:59 14:59 22:59 Other: Weight 104.326 kg Constitutional: No acute distress, conversant, pleasant Eyes:Anicteric sclerae, moist conjunctiva, no lid-lag, PERRLA, ENMT: Oropharynx clear, no erythema, exudates Neck: Supple, FROM, no masses, or JVD, No carotid bruits, No thyromegaly Lungs: Clear to auscultation, Clear to percussion, Normal respiratory effort, no accessory muscle use Cardiovascular: Heart regular in rate and rhythm, No murmurs, gallops, or rubs, No peripheral edema Abdominal: Soft, Nontender, no guarding, rebound or rigidity, Normoactive bowel sounds, No hepatomegaly, No splenomegaly, No palpable mass Skin: right leg erythema in the [place] area below the knee, No subcutaneous nodules, No rash, lesions, No ulcers Extremities: No digital cyanosis, No clubbing, Pedal pulses intact and symmetrical, Radial pulses intact and symmetrical, No calf tenderness Psychiatric: Alert and oriented to person, place and time, appropriate affect, intact judgement Neuro: Muscles Strength 5/5 in all 4 extremities, Sensation to light touch grossly present throughout, Cranial nerves II-XII grossly intact, no focal sensory deficits Results CBC & Chem 7: 05/30/22 07:22 05/30/22 09:30 Labs: Abnormal Lab Results - Last 24 Hours (Table) 05/30/22 05/30/22 05/30/22 Range/Units 07:22 07:22 09:30 WBC 27.8 H (3.8-10.6) k/uL Hct 53.1 H (39.0-53.0) % Neutrophils # (Manual) 24.40 H (1.3-7.7) k/uL Monocytes # (Manual) 2.22 H (0-1.0) k/uL Metamyelocytes # (Man) 0.28 H (0) k/uL Sodium 136 L (137-145) mmol/L BUN 37 H (9-20) mg/dL Creatinine 1.96 H (0.66-1.25) mg/dL Glucose 112 H (74-99) mg/dL Plasma Lactic Acid Nabil 5.4 H* (0.7-2.0) mmol/L Magnesium 1.3 L (1.6-2.3) mg/dL Troponin I (0.000-0.034) ng/mL Total Protein 5.7 L (6.3-8.2) g/dL Urine Protein (Negative) Urine Blood (Negative) Urine RBC (0-5) /hpf Urine WBC (0-5) /hpf Urine Bacteria (None) /hpf Hyaline Casts (0-2) /lpf Urine Mucus (None) /hpf 05/30/22 05/30/22 05/30/22 Range/Units 09:30 11:59 13:05 WBC (3.8-10.6) k/uL Hct (39.0-53.0) % Neutrophils # (Manual) (1.3-7.7) k/uL Monocytes # (Manual) (0-1.0) k/uL Metamyelocytes # (Man) (0) k/uL Sodium (137-145) mmol/L BUN (9-20) mg/dL Creatinine (0.66-1.25) mg/dL Glucose (74-99) mg/dL Plasma Lactic Acid Nabil (0.7-2.0) mmol/L Magnesium (1.6-2.3) mg/dL Troponin I 0.201 H* 0.196 H* (0.000-0.034) ng/mL Total Protein (6.3-8.2) g/dL Urine Protein Trace H (Negative) Urine Blood Large H (Negative) Urine RBC 66 H (0-5) /hpf Urine WBC 6 H (0-5) /hpf Urine Bacteria Rare H (None) /hpf Hyaline Casts 21 H (0-2) /lpf Urine Mucus Rare H (None) /hpf 05/30/22 Range/Units 13:48 WBC (3.8-10.6) k/uL Hct (39.0-53.0) % Neutrophils # (Manual) (1.3-7.7) k/uL Monocytes # (Manual) (0-1.0) k/uL Metamyelocytes # (Man) (0) k/uL Sodium (137-145) mmol/L BUN (9-20) mg/dL Creatinine (0.66-1.25) mg/dL Glucose (74-99) mg/dL Plasma Lactic Acid Nabil 3.4 H* (0.7-2.0) mmol/L Magnesium (1.6-2.3) mg/dL Troponin I (0.000-0.034) ng/mL Total Protein (6.3-8.2) g/dL Urine Protein (Negative) Urine Blood (Negative) Urine RBC (0-5) /hpf Urine WBC (0-5) /hpf Urine Bacteria (None) /hpf Hyaline Casts (0-2) /lpf Urine Mucus (None) /hpf Assessment and Plan Plan: Acute sepsis with hypotension Source unclear, could be UTI versus cellulitis versus intra-abdominal source Patient was seen by infectious disease, CT abdomen and pelvis ordered. We'll treat empirically with cefazolin for now. Blood cultures sent IV fluids Lactic acidosis IV fluids Trend Hypomagnesemia Replace Follow in a.m. Acute kidney injury Likely secondary to sepsis and dehydration Follow kidney function in a.m. Avoid nephrotoxic medications Atrial fibrillation, persistent, Hyperlipidemia Stable Resume meds DVT prophylaxis Already on eliqus, we'll continue Admit to inpatient, expected length of stay more than 2 midnights
--- NOTE | 2022-05-30 16:00 | CT ---
EXAMINATION TYPE: CT abdomen pelvis wo con DATE OF EXAM: 05/30/2022 COMPARISON: None HISTORY: 82-year-old male weakness, sepsis CT DLP: 1345.4 mGycm. Automated exposure control for dose reduction was used. TECHNIQUE: Contiguous axial scanning of the abdomen and pelvis without IV contrast. Coronal and sagit bakari reconstructions performed. FINDINGS: Median sternotomy wires. Mild bilateral gynecomastia. Large caliber to the main right and left pulmon cat arteries up to 3.2 cm suggesting underlying pulmonary hypertension. Dependent atelectasis and matt athing motion in the visualized lower lungs. No pleural effusion. Noncontrast appearance of the liver, adrenal glands, spleen, atrophic pancreas shows no gross abnorma lity. There is a 4.1 cm diverticulum of the second portion of the duodenum projecting anteriorly. Cholecystectomy clips. Multiple bilateral renal cortical lesions are present, largest on the left measuring up to 5.0 cm. Th chanda likely represent cysts. A couple smaller lesions measuring up to 1.1 cm, posterior midpole left k idney are indeterminate given intermediate attenuation and should be reassessed at follow-up. Other s ubcentimeter cortical lesions are too small for accurate CT characterization and should be reassessed at follow-up. There is no hydronephrosis on either side. One of the cysts within the lateral left ki dney appears to be collapsing or leaking, sagittal image 126 and axial image 56. No dilated small bowel, free fluid, or free air. There is left-sided jejunal diverticulosis with diverticula measuring up to 4.5 cm. Oral contrast has just entered the cecum. The colon is collapsed. Left-sided colonic diverticulosis, greatest along the lower descending and proximal to mid sigmoid colon. Moderate stool within the dist al sigmoid and rectum. There is some fat stranding along the proximal to mid sigmoid colon that could represent prominent pe ricolonic vessels or mild inflammation. Bladder partially distended. Tiny focus of nondependent bladder air anteriorly. Numerous brachytherap y seeds within the prostate gland. No abnormal fluid collection pelvis or pelvic lymphadenopathy. There is some focal fat stranding along the anterior upper right thigh and lateral right inguinal reg ion, axial image 114. Bones: Moderate to advanced disc/endplate degenerative change and hypertrophic facet arthropathy mid to lower lumbar spine. IMPRESSION: 1. Findings suggest nonspecific swelling, cellulitis, or some bruising along the anterior upper righ t thigh. Clinically correlate. 2. Left-sided clonic diverticulosis greatest in the sigmoid colon. There is some pericolonic fat stra nding along the proximal to mid sigmoid colon that could represent prominent vessels versus mild acut e diverticulitis. Clinically correlate. No abscess or free air. 3. Left-sided jejunal diverticulosis with diverticula measuring up to 4.5 cm. 4. Tiny focus of air within the bladder. Query any recent instrumentation. Correlate to exclude bladd er infection. 5. Numerous bilateral renal lesions likely representing cysts measuring up to 5.0 cm. One of these cy sts laterally in the left kidney may be leaking or ruptured. Smaller cortical lesions are indetermina te. Six-month follow-up CT to reassess. 6. Incidental: Pulmonary arterial hypertension.
[2022-05-30] MEDS: MAGNESIUM SULFATE-D5W PMX 1 GM in DEXTROSE/WATER 1 100ML.BAG IVPB SCH ×2 (16:41→17:43)
[2022-05-30] MEDS: ASPIRIN 81 MG PO SCH (16:44)
[2022-05-30] MEDS: ATORVASTATIN 20 MG TAB PO SCH (16:44)
[2022-05-30] MEDS: GABAPENTIN 400 MG CAP PO SCH ×2 (16:46→22:37)
[2022-05-30] MEDS ORDERED: [UNRECOGNIZED DRUG - OTHER] PO SCH (21:00)
[2022-05-30] MEDS ORDERED: prednisoLONE ACETATE 1% OPHTH DROPS 5 ML BTL LEFT EYE SCH (21:00)
[2022-05-30] MEDS: ACETAMINOPHEN TAB 325 MG TAB PO PRN (22:37)
[2022-05-30] MEDS: APIXABAN 2.5 MG TABLET PO SCH (22:37)
--- NOTE | 2022-05-30 23:52 | P.CONS ---
History of Present Illness - Reason for Consult Consult date: 05/30/22 Sepsis Requesting physician: David Barriga - Chief Complaint Weakness x one day - History of Present Illness Patient is a 82-year-old male presenting to the hospital for evaluation of weakness and no energy apparently the patient did go to the bathroom this morning and did have a fall and was unable to get up for his EMS was calling patient denies any history of any head trauma or loss of portions but denies any headache no URI symptoms no chest pain shortness of breath or cough no abdominal pain and diarrhea or urinary symptoms patient was noted to have erythema to the right lower extremity however patient denies having any discomfort or pain to the right leg no open wound or any drainage patient on presentation to the hospital did have fever 100.2 degrees formulae right patient did have elevated lactic acid vital 27,000 patient received a dose of vancomycin infectious disease was consulted for further management and concern for underlying sepsis in this patient with a negative UA chest x-ray was negative for acute cardiopulmonary process Review of Systems Positive point has been mentioned in the HPI rest of the systems are negative Past Medical History Past Medical History: Atrial Fibrillation, Heart Failure, GERD/Reflux, Hyperlipidemia, Neurologic Disorder Additional Past Medical History / Comment(s): Neuropathy History of Any Multi-Drug Resistant Organisms: None Reported Past Surgical History: Cholecystectomy, Coronary Bypass/CABG Additional Past Surgical History / Comment(s): CABG (4 vessel) 1997, 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 Past Psychological History: No Psychological Hx Reported Past Alcohol Use History: Occasional Past Drug Use History: None Reported Medications and Allergies Home Medications Medication Instructions Recorded Confirmed Type Apixaban [Eliquis] 2.5 mg PO BID 03/30/19 05/30/22 History Aspirin EC [Ecotrin Low Dose] 81 mg PO W/SUPPER 03/30/19 05/30/22 History Omeprazole 20 mg PO DAILY 03/30/19 05/30/22 History Simvastatin [Zocor] 40 mg PO W/SUPPER 03/30/19 05/30/22 History Focus Select Areds2 1 tab PO BID 05/30/22 05/30/22 History Furosemide [Lasix] 60 mg PO DAILY 05/30/22 05/30/22 History Gabapentin 800 mg PO ACHS 05/30/22 05/30/22 History Spironolactone [Aldactone] 50 mg PO DAILY 05/30/22 05/30/22 History prednisoLONE ACETATE 1% OPHTH 1 drop LEFT EYE MOWEFR@2100 05/30/22 05/30/22 History [Pred Forte 1%] Allergies Allergy/AdvReac Type Severity Reaction Status Date / Time No Known Allergies Allergy Verified 05/30/22 11:46 Physical Exam Vitals: Vital Signs Temp Pulse Resp BP Pulse Ox 05/30/22 12:26 68 16 85/55 96 05/30/22 10:00 98.7 F 80 20 78/59 95 05/30/22 09:17 98.6 F 88 17 71/51 98 05/30/22 07:13 100.2 F H 112 H 18 118/90 96 Intake and Output 05/29/22 05/30/22 05/30/22 22:59 06:59 14:59 Other: Weight 104.326 kg GENERAL DESCRIPTION: Elderly male lying in bed, no distress. No tachypnea or accessory muscle of respiration use. HEENT: Shows Pallor , no scleral icterus. Oral mucous membrane is dry. No pharyngeal erythema or thrush NECK: Trachea central, no thyromegaly. LUNGS: Unlabored breathing. Clear to auscultation anteriorly. No wheeze or crackle. HEART: S1, S2, regular rate and rhythm. No loud murmur ABDOMEN: Soft, no tenderness , guarding or rigidity, no organomegaly EXTREMITIES: Swelling redness and warmth to the right lower leg SKIN: No rash, no masses palpable. NEUROLOGICAL: The patient is awake, alert, oriented x3, mood and affect normal. Results CBC & Chem 7: 05/30/22 07:22 05/30/22 09:30 Labs: Abnormal Lab Results - Last 24 Hours (Table) 05/30/22 05/30/22 05/30/22 Range/Units : 07:22 09:30 WBC 27.8 H (3.8-10.6) k/uL Hct 53.1 H (39.0-53.0) % Neutrophils # (Manual) 24.40 H (1.3-7.7) k/uL Monocytes # (Manual) 2.22 H (0-1.0) k/uL Metamyelocytes # (Man) 0.28 H (0) k/uL Sodium 136 L (137-145) mmol/L BUN 37 H (9-20) mg/dL Creatinine 1.96 H (0.66-1.25) mg/dL Glucose 112 H (74-99) mg/dL Plasma Lactic Acid Nabil 5.4 H* (0.7-2.0) mmol/L Magnesium 1.3 L (1.6-2.3) mg/dL Troponin I (0.000-0.034) ng/mL Total Protein 5.7 L (6.3-8.2) g/dL Urine Protein (Negative) Urine Blood (Negative) Urine RBC (0-5) /hpf Urine WBC (0-5) /hpf Urine Bacteria (None) /hpf Hyaline Casts (0-2) /lpf Urine Mucus (None) /hpf 05/30/22 05/30/22 Range/Units 09:30 11:59 WBC (3.8-10.6) k/uL Hct (39.0-53.0) % Neutrophils # (Manual) (1.3-7.7) k/uL Monocytes # (Manual) (0-1.0) k/uL Metamyelocytes # (Man) (0) k/uL Sodium (137-145) mmol/L BUN (9-20) mg/dL Creatinine (0.66-1.25) mg/dL Glucose (74-99) mg/dL Plasma Lactic Acid Nabil (0.7-2.0) mmol/L Magnesium (1.6-2.3) mg/dL Troponin I 0.201 H* (0.000-0.034) ng/mL Total Protein (6.3-8.2) g/dL Urine Protein Trace H (Negative) Urine Blood Large H (Negative) Urine RBC 66 H (0-5) /hpf Urine WBC 6 H (0-5) /hpf Urine Bacteria Rare H (None) /hpf Hyaline Casts 21 H (0-2) /lpf Urine Mucus Rare H (None) /hpf Assessment and Plan (1) Sepsis Current Visit: Yes Status: Acute Code(s): A41.9 - SEPSIS, UNSPECIFIED ORGANISM SNOMED Code(s): 77035745 Plan: 1patient presented to hospital with sepsis in this patient with a fever elevated white count elevated lactic acid with concern for possible right lower extremity cellulitis as currently no other obvious focus with a negative UA chest x-ray has been negative abdomen is soft however slightly distended underlying abdominal source not entirely excluded 2-patient with renal insufficiency and high risk of nephrotoxicity from vancomycin 3-we will discontinue vancomycin 4-obtain a CT of abdominal pelvis with oral contrast only 5-empirically start cefazolin to cover for possible cellulitis or awaiting further work-up to be completed We will follow on clinical condition and cultures to further adjust medication if needed Thank you for this consultation will follow this patient along with you Time with Patient: Greater than 30
[2022-05-31] MEDS ORDERED: AMPICILLIN-SULBACTAM 3 GM in SODIUM CHLORIDE 0.9% 100 ML IVPB SCH ×2
[2022-05-31 04:08] LABS: Basophils # (A) 0.1 k/uL (0-0.2); Basophils % (A) 0 %; Eosinophils % (A) 0 %; HCT 42.2 % (39.0-53.0); Lymphocytes # (A) 1.3 k/uL (1.0-4.8); Lymphocytes % (A) 5 %; MCH 32.5 pg (25.0-35.0); MCHC 33.2 g/dL (31.0-37.0); Mean Platelet Volume 8.1; Monocytes # (A) 1.1 k/uL (0-1.0); Monocytes % (A) 4 %; Neutrophils # (A) 22.7 k/uL (1.3-7.7); Neutrophils % (A) 89 %; Platelet Count 200 k/uL (150-450); RBC 4.31 m/uL (4.30-5.90); RDW 12.9 % (11.5-15.5); WBC 25.4 k/uL (3.8-10.6)
[2022-05-31 04:27] LABS: Albumin 3.1 g/dL (3.5-5.0); Calcium 8.3 mg/dL (8.4-10.2); Magnesium 2.4 mg/dL (1.6-2.3); Total Bilirubin 0.6 mg/dL (0.2-1.3); Total Protein 5.1 g/dL (6.3-8.2)
[2022-05-31] MEDS ORDERED: VANCOMYCIN 1,750 MG in SODIUM CHLORIDE 0.9% 500 ML 500 ML IVPB ONE (06:00)
[2022-05-31] MEDS: GABAPENTIN 400 MG CAP PO SCH ×4 (06:45→20:48)
[2022-05-31] MEDS: PANTOPRAZOLE 40 MG TABLET PO SCH (06:45)
[2022-05-31] MEDS: APIXABAN 2.5 MG TABLET PO SCH ×2 (09:13→20:48)
[2022-05-31] MEDS: AMPICILLIN-SULBACTAM 3 GM in SODIUM CHLORIDE 0.9% 100 ML IVPB SCH ×2 (12:26→23:22)
--- NOTE | 2022-05-31 14:21 | P.PN ---
Subjective Progress Note Date: 05/31/22 Principal diagnosis: sepsis Patient is feeling better today. She had a low-grade temperature of 99.7 last night. Denied having any shortness of breath, chest pain, abdominal pain, nausea or vomiting. He does have right lower leg pain especially when touching the skin. Objective - Vital Signs Vital signs: Vital Signs Temp 98.2 F 05/31/22 09:08 Pulse 92 05/31/22 12:30 Resp 18 05/31/22 12:30 BP 118/74 05/31/22 12:30 Pulse Ox 95 05/31/22 12:30 FiO2 Intake & Output 05/30/22 05/31/22 05/31/22 18:59 06:59 18:59 Intake Total 120 Output Total 50 500 250 Balance -50 -500 -130 Weight 104.326 kg 104.326 kg Intake: Oral 120 Output: Urine 50 500 250 Other: Voiding Method Urinal Urinal # Bowel Movements 1 - Exam Constitutional: No acute distress, conversant, pleasant Eyes:Anicteric sclerae, moist conjunctiva, no lid-lag, PERRLA, ENMT: Oropharynx clear, no erythema, exudates Neck: Supple, FROM, no masses, or JVD, No carotid bruits, No thyromegaly Lungs: Clear to auscultation, Clear to percussion, Normal respiratory effort, no accessory muscle use Cardiovascular: Heart regular in rate and rhythm, No murmurs, gallops, or rubs, No peripheral edema Abdominal: Soft, Nontender, no guarding, rebound or rigidity, Normoactive bowel sounds, No hepatomegaly, No splenomegaly, No palpable mass Skin: right leg erythema in the ibarra area below the knee, No subcutaneous nodules, No rash, lesions, No ulcers Extremities: No digital cyanosis, No clubbing, Pedal pulses intact and symmetrical, Radial pulses intact and symmetrical, No calf tenderness Psychiatric: Alert and oriented to person, place and time, appropriate affect, intact judgement Neuro: Muscles Strength 5/5 in all 4 extremities, Sensation to light touch grossly present throughout, Cranial nerves II-XII grossly intact, no focal sensory deficits - Labs CBC & Chem 7: 05/31/22 03:26 05/31/22 03:26 Labs: Abnormal Lab Results - Last 24 Hours (Table) 05/30/22 05/30/22 05/30/22 Range/Units 13:05 16:54 19:41 WBC (3.8-10.6) k/uL Neutrophils # (1.3-7.7) k/uL Monocytes # (0-1.0) k/uL Sodium (137-145) mmol/L Carbon Dioxide (22-30) mmol/L BUN (9-20) mg/dL Creatinine (0.66-1.25) mg/dL Glucose (74-99) mg/dL Plasma Lactic Acid Nabil 4.3 H* 2.8 H* (0.7-2.0) mmol/L Calcium (8.4-10.2) mg/dL Magnesium (1.6-2.3) mg/dL AST (17-59) U/L Troponin I 0.196 H* (0.000-0.034) ng/mL Total Protein (6.3-8.2) g/dL Albumin (3.5-5.0) g/dL 05/30/22 05/31/22 05/31/22 Range/Units 23:29 03:26 03:26 WBC 25.4 H (3.8-10.6) k/uL Neutrophils # 22.7 H (1.3-7.7) k/uL Monocytes # 1.1 H (0-1.0) k/uL Sodium 134 L (137-145) mmol/L Carbon Dioxide 21 L (22-30) mmol/L BUN 38 H (9-20) mg/dL Creatinine 1.60 H (0.66-1.25) mg/dL Glucose 107 H (74-99) mg/dL Plasma Lactic Acid Nabil 2.4 H* (0.7-2.0) mmol/L Calcium 8.3 L (8.4-10.2) mg/dL Magnesium 2.4 H (1.6-2.3) mg/dL AST 66 H (17-59) U/L Troponin I (0.000-0.034) ng/mL Total Protein 5.1 L (6.3-8.2) g/dL Albumin 3.1 L (3.5-5.0) g/dL Microbiology - Last 24 Hours (Table) 05/30/22 10:00 Blood Culture - Preliminary Blood No Growth after 24 hours 05/30/22 09:29 Blood Culture - Preliminary Blood No Growth after 24 hours Assessment and Plan Plan: Acute sepsis with hypotension Source likely from right lower leg cellulitis Patient was seen by infectious disease, CT abdomen and pelvis ordered and that did not show any significant abnormalities that could account for this sepsis. Continue cefazolin for now. Blood cultures negative after 24 hours. IV fluids Lactic acidosis IV fluids Resolved Hypomagnesemia Replace Follow in a.m. Acute kidney injury Likely secondary to sepsis and dehydration Follow kidney function in a.m. Avoid nephrotoxic medications Atrial fibrillation, persistent, Hyperlipidemia Stable Resume meds DVT prophylaxis Already on eliqus, we'll continue Computed tomography scan of the abdomen showed multiple renal cysts largest 5 cm with some cysts possibly leaking, radiology suggesting outpatient follow-up in 6 months with repeat computed tomography scan.
[2022-05-31] MEDS: ASPIRIN 81 MG PO SCH (16:58)
[2022-05-31] MEDS: ATORVASTATIN 20 MG TAB PO SCH (16:58)
[2022-05-31 21:49] VITALS: RESP 16
[2022-05-31] MEDS: ACETAMINOPHEN TAB 325 MG TAB PO PRN (23:22)
[2022-06-01] MEDS: GABAPENTIN 400 MG CAP PO SCH ×2 (06:24→11:51)
[2022-06-01] MEDS: PANTOPRAZOLE 40 MG TABLET PO SCH (06:24)
[2022-06-01] MEDS: APIXABAN 2.5 MG TABLET PO SCH (09:01)
[2022-06-01 09:26] LABS: Basophils % (A) 0 %; Eosinophils # (A) 0.2 k/uL (0-0.7); Eosinophils % (A) 2 %; HCT 47.5 % (39.0-53.0); Lymphocytes # (A) 1.2 k/uL (1.0-4.8); Lymphocytes % (A) 9 %; MCH 31.8 pg (25.0-35.0); MCHC 31.5 g/dL (31.0-37.0); Mean Platelet Volume 8.2; Monocytes # (A) 0.4 k/uL (0-1.0); Monocytes % (A) 3 %; Neutrophils # (A) 11.1 k/uL (1.3-7.7); Neutrophils % (A) 85 %; Platelet Count 202 k/uL (150-450); RBC 4.71 m/uL (4.30-5.90); RDW 13.1 % (11.5-15.5); WBC 13.1 k/uL (3.8-10.6)
[2022-06-01 09:49] LABS: Calcium 8.6 mg/dL (8.4-10.2); Magnesium 2.6 mg/dL (1.6-2.3); Potassium 4.4 mmol/L (3.5-5.1)
[2022-06-01] MEDS: AMPICILLIN-SULBACTAM 3 GM in SODIUM CHLORIDE 0.9% 100 ML IVPB SCH (11:51)
[2022-06-01 12:45] VITALS: BP 112/79; PULSE 64; TEMP 96.8
--- NOTE | 2022-06-01 13:39 | P.DS ---
Providers Date of admission: 05/30/22 10:37 Expected date of discharge: 06/01/22 Attending physician: Pablo Berman MD Consults: 05/30/22 10:37 Consult Physician Routine Consulting Provider: Demetrius Albrecht Consult Reason/Comments: Sepsis Do you want consulting provider notified?: Yes Primary care physician: Arnaeem [facility] Hospital Course: 82-year-old male with history of CAD, atrial fibrillation on anticoagulation with eliquis, hypertension, hyperlipidemia presents with generalized weakness and fall. Due to weakness he fell today on his back. He states he has no energy. In addition he has been having fevers and chills. Denied head trauma with fall. Denies any focal pain. No focal weakness or numbness. Denies cough or URI symptoms. Denies abdominal pain or dysuria. No chest pain. He has been sick since yesterday. In the emergency department he was found to have a fever of 100.2. He was also found to have cellulitic changes in the right lower extremity. Labs were significant for leukocytosis of 27,000. Sodium 136, creatinine 1.96, BUN 37, magnesium 1.3, troponin 0.2, repeat 0.19. Lactic acid 3.5. Chest x-ray showed pulmonary vascular congestion with interstitial edema, no focal infiltrates. Head and neck computed tomography scan negative for acute dislocation, fracture or any acute event. Pelvic x-ray was negative for any fractures. Patient was subsequently admitted, he was started on IV fluids and IV antibiotics with vancomycin. However due to acute renal insufficiency, it was switched later to cefazolin. Source of infection was thought to be from right lower extremity cellutlitis. Computed tomography scan of the abdomen and pelvis was ordered by infectious disease and that did not show any abdominal source of infection. It incidentally showed large renal cysts up to 5 centimeters. Patient being discharged on Thursday, follow-up computed tomography scan cannot be scheduled. I communicated to the nurse to let the patient know about this. Patient has to call scheduling and follow-up with his primary care physician for the order. Follow up CT is in my discharge orders. His blood cultures did not reveal any growth after 48 hours of incubation. The right lower extremity cellulitis is looking and feeling better. He has not had any fevers for 24 hours. Renal function came back to normal. He will be discharged home in a stable condition. Time for discharge 35 minutes. Patient Condition at Discharge: Serious Plan - Discharge Summary Discharge Rx Participant: No New Discharge Prescriptions: New Cephalexin [Keflex] 500 mg PO Q6HR 5 Days #20 cap Continue Simvastatin [Zocor] 40 mg PO W/SUPPER Aspirin EC [Ecotrin Low Dose] 81 mg PO W/SUPPER Apixaban [Eliquis] 2.5 mg PO BID Omeprazole 20 mg PO DAILY Spironolactone [Aldactone] 50 mg PO DAILY prednisoLONE ACETATE 1% OPHTH [Pred Forte 1%] 1 drop LEFT EYE MOWEFR@2100 Gabapentin 800 mg PO ACHS Furosemide [Lasix] 60 mg PO DAILY Focus Select Areds2 1 tab PO BID Discharge Medication List Apixaban [Eliquis] 2.5 mg PO BID 03/30/19 [History] Aspirin EC [Ecotrin Low Dose] 81 mg PO W/SUPPER 03/30/19 [History] Omeprazole 20 mg PO DAILY 03/30/19 [History] Simvastatin [Zocor] 40 mg PO W/SUPPER 03/30/19 [History] Focus Select Areds2 1 tab PO BID 05/30/22 [History] Furosemide [Lasix] 60 mg PO DAILY 05/30/22 [History] Gabapentin 800 mg PO ACHS 05/30/22 [History] Spironolactone [Aldactone] 50 mg PO DAILY 05/30/22 [History] prednisoLONE ACETATE 1% OPHTH [Pred Forte 1%] 1 drop LEFT EYE MOWEFR@2100 05/30/22 [History] Cephalexin [Keflex] 500 mg PO Q6HR 5 Days #20 cap 06/01/22 [Rx] Follow up Appointment(s)/Referral(s): Ar Boyle MD [Primary Care Provider] - 1-2 days Ambulatory/Diagnostic Orders: Miscellaneous Radiology Order [RAD.AMB] Location: None Selected
== END 2022-06-01 14:52 | disposition home or self-care (01) | DRG 872 ==
LOC: EC 07:04 → 3SCARD 10:37
PROVIDERS: ADMIT Internal Medicine; ATTEND Internal Medicine
DX: A41.9 Sepsis, unspecified organism (principal); N17.9 Acute kidney failure, unspecified; E87.2 Acidosis; I48.19 Other persistent atrial fibrillation; L03.115 Cellulitis of right lower limb; I11.0 Hypertensive heart disease with heart failure; I50.9 Heart failure, unspecified; S09.90XA Unspecified injury of head, initial encounter; I95.9 Hypotension, unspecified; R65.20 Severe sepsis without septic shock; Z20.822 Contact with and (suspected) exposure to COVID-19; E78.5 Hyperlipidemia, unspecified; E86.0 Dehydration; I25.10 Atherosclerotic heart disease of native coronary artery without angina pectoris; N28.1 Cyst of kidney, acquired; E83.42 Hypomagnesemia; G62.9 Polyneuropathy, unspecified; K21.9 Gastro-esophageal reflux disease without esophagitis; R77.8 Other specified abnormalities of plasma proteins; Z79.01 Long term (current) use of anticoagulants; Z79.82 Long term (current) use of aspirin; Z79.899 Other long term (current) drug therapy; Z95.1 Presence of aortocoronary bypass graft; Z94.7 Corneal transplant status; W18.30XA Fall on same level, unspecified, initial encounter; Y92.002 Bathroom of unspecified non-institutional (private) residence as the place of occurrence of the external cause
CPT/HCPCS: 36415; 70450; 71046; 72125; 72170; 74176; 80048; 80053; 81001; 83605; 83735; 84484; 85025; 85610; 85730; 87040; 87635; 93005; 96361; 96365; 96366; 96368; 96375; 99291

== ENCOUNTER 2022-06-03 11:04 | Inpatient (IN) | payer MEDICARE ==
[2022-06-03] MEDS ORDERED: MORPHINE SULFATE 4 MG/ML SYRINGE IV STA (16:23)
[2022-06-03] MEDS ORDERED: KETOROLAC 15 MG/ML 1 ML VIAL IVP STA (16:23)
--- NOTE | 2022-06-03 16:28 | ED ---
Extremity Problem HPI - General Chief complaint: Extremity Problem,Nontraumatic Stated complaint: leg infection Time Seen by Provider: 06/03/22 16:08 Source: patient Mode of arrival: ambulatory Limitations: no limitations - History of Present Illness Initial comments: This patient is an 82-year-old man who presents with complaint of right leg pain. Patient states that he had been admitted to the hospital here Thursday for fever suspected to be related to right leg cellulitis. He was discharged on Thursday continue antibiotics at home. He has been taking Augmentin twice a day. Patient states that he has had increasing swelling and pain to the lower portion of the right leg near the ankle. States that it is worse if he tries to move it or if the leg is down. He has been elevating his leg but continues to have swelling. MD Complaint: extremity pain, extremity swelling -: days(s) Location: right, lower extremity Radiation: none Quality: burning, aching Consistency: constant Improves with: nothing Worsens with: nothing Associated Symptoms: denies other symptoms - Related Data Home Medications Medication Instructions Recorded Confirmed Apixaban [Eliquis] 2.5 mg PO BID 03/30/19 06/03/22 Aspirin EC [Ecotrin Low Dose] 81 mg PO W/SUPPER 03/30/19 06/03/22 Omeprazole 20 mg PO DAILY 03/30/19 06/03/22 Simvastatin [Zocor] 40 mg PO W/SUPPER 03/30/19 06/03/22 Focus Select Areds2 1 tab PO BID 05/30/22 06/03/22 Furosemide [Lasix] 60 mg PO DAILY 05/30/22 06/03/22 Gabapentin 800 mg PO ACHS 05/30/22 06/03/22 Spironolactone [Aldactone] 50 mg PO DAILY 05/30/22 06/03/22 prednisoLONE ACETATE 1% OPHTH 1 drop LEFT EYE MOWEFR@2100 05/30/22 06/03/22 [Pred Forte 1%] Previous Rx's Medication Instructions Recorded Amoxic-Pot Clav 875-125Mg 1 tab PO BID 10 Days #20 tab 06/01/22 [Augmentin 875-125] Allergies Allergy/AdvReac Type Severity Reaction Status Date / Time No Known Allergies Allergy Verified 06/03/22 18:02 Review of Systems ROS Statement: Those systems with pertinent positive or pertinent negative responses have been documented in the HPI. ROS Other: All systems not noted in ROS Statement are negative. Constitutional: Denies: fever, chills Respiratory: Denies: cough, dyspnea Cardiovascular: Reports: edema (Right leg Greater than left). Denies: chest pain, palpitations Gastrointestinal: Denies: abdominal pain, vomiting, diarrhea Genitourinary: Denies: dysuria, hematuria Musculoskeletal: Denies: back pain Skin: Denies: rash Neurological: Denies: headache, weakness, numbness, paresthesias Past Medical History Past Medical History: Atrial Fibrillation, Heart Failure, GERD/Reflux, Hyperlipidemia, Neurologic Disorder Additional Past Medical History / Comment(s): Neuropathy History of Any Multi-Drug Resistant Organisms: None Reported Past Surgical History: Cholecystectomy, Coronary Bypass/CABG Additional Past Surgical History / Comment(s): CABG (4 vessel) 1997, 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 Absent: respiratory distress, wheezes, rales, rhonchi, stridor Cardiovascular Exam: Present: regular rate, normal rhythm, normal heart sounds, other (Strong and symmetric dorsalis pedis pulses). Absent: systolic murmur, diastolic murmur, rubs, gallop GI/Abdominal exam: Present: soft. Absent: distended, tenderness, guarding Extremities exam: Present: normal capillary refill, pedal edema (There is circumferential erythema and warmth of the right lower extremity as well as edema.) Back exam: Present: normal inspection. Absent: CVA tenderness (R), CVA tenderness (L) Neurological exam: Present: alert. Absent: motor sensory deficit Skin exam: Present: warm, dry, intact, erythema (Right lower leg) Course Vital Signs 06/03/22 06/03/22 06/03/22 11:30 16:44 18:53 Temperature 98 F Pulse Rate 91 95 89 Respiratory 20 18 22 Rate Blood Pressure 115/72 114/64 137/73 O2 Sat by Pulse 98 97 98 Oximetry 06/03/22 06/03/2222 20:30 21:00 21:01 Temperature 102.7 F H Pulse Rate 107 H 94 Respiratory 18 17 Rate Blood Pressure 115/64 118/73 O2 Sat by Pulse 93 L 89 L 94 L Oximetry 06/03/22 21:36 Temperature 99.8 F H Pulse Rate Respiratory Rate Blood Pressure O2 Sat by Pulse Oximetry Medical Decision Making - Lab Data Result diagrams: 06/03/22 16:38 06/03/22 16:38 Lab Results 06/03/22 06/03/22 06/03/22 Range/Units 16:38 16:38 16:38 WBC 12.1 H (3.8-10.6) k/uL RBC 4.89 (4.30-5.90) m/uL Hgb 15.7 (13.0-17.5) gm/dL Hct 48.8 (39.0-53.0) % MCV 99.9 (80.0-100.0) fL MCH 32.1 (25.0-35.0) pg MCHC 32.1 (31.0-37.0) g/dL RDW 12.9 (11.5-15.5) % Plt Count 268 (150-450) k/uL MPV 7.9 Neutrophils % 79 % Lymphocytes % 11 % Monocytes % 4 % Eosinophils % 2 % Basophils % 1 % Neutrophils # 9.5 H (1.3-7.7) k/uL Lymphocytes # 1.3 (1.0-4.8) k/uL Monocytes # 0.5 (0-1.0) k/uL Eosinophils # 0.2 (0-0.7) k/uL Basophils # 0.1 (0-0.2) k/uL ESR Cancelled Sodium 138 (137-145) mmol/L Potassium 5.1 (3.5-5.1) mmol/L Chloride 104 (98-107) mmol/L Carbon Dioxide 23 (22-30) mmol/L Anion Gap 11 mmol/L BUN 19 (9-20) mg/dL Creatinine 0.98 (0.66-1.25) mg/dL Est GFR (CKD-EPI)AfAm 82 (>60 ml/min/1.73 sqM) Est GFR (CKD-EPI)NonAf 71 (>60 ml/min/1.73 sqM) Glucose 94 (74-99) mg/dL Lactic Ac Sepsis Rflx Plasma Lactic Acid Nabil 2.7 H* (0.7-2.0) mmol/L Calcium 8.9 (8.4-10.2) mg/dL Total Bilirubin 0.8 (0.2-1.3) mg/dL AST 48 (17-59) U/L ALT 36 (4-49) U/L Alkaline Phosphatase 106 (38-126) U/L Creatine Kinase 75 (55-170) U/L CK-MB (CK-2) (0.0-2.4) ng/mL Total Protein 6.4 (6.3-8.2) g/dL Albumin 3.9 (3.5-5.0) g/dL 06/03/22 06/03/22 06/03/22 Range/Units 16:38 17:03 19:03 WBC (3.8-10.6) k/uL RBC (4.30-5.90) m/uL Hgb (13.0-17.5) gm/dL Hct (39.0-53.0) % MCV (80.0-100.0) fL MCH (25.0-35.0) pg MCHC (31.0-37.0) g/dL RDW (11.5-15.5) % Plt Count (150-450) k/uL MPV Neutrophils % % Lymphocytes % % Monocytes % % Eosinophils % % Basophils % % Neutrophils # (1.3-7.7) k/uL Lymphocytes # (1.0-4.8) k/uL Monocytes # (0-1.0) k/uL Eosinophils # (0-0.7) k/uL Basophils # (0-0.2) k/uL ESR Sodium (137-145) mmol/L Potassium (3.5-5.1) mmol/L Chloride (98-107) mmol/L Carbon Dioxide (22-30) mmol/L Anion Gap mmol/L BUN (9-20) mg/dL Creatinine (0.66-1.25) mg/dL Est GFR (CKD-EPI)AfAm (>60 ml/min/1.73 sqM) Est GFR (CKD-EPI)NonAf (>60 ml/min/1.73 sqM) Glucose (74-99) mg/dL Lactic Ac Sepsis Rflx Y Plasma Lactic Acid Nabil 1.6 (0.7-2.0) mmol/L Calcium (8.4-10.2) mg/dL Total Bilirubin (0.2-1.3) mg/dL AST (17-59) U/L ALT (4-49) U/L Alkaline Phosphatase (38-126) U/L Creatine Kinase (55-170) U/L CK-MB (CK-2) 1.0 (0.0-2.4) ng/mL Total Protein (6.3-8.2) g/dL Albumin (3.5-5.0) g/dL 06/03/22 Range/Units 22:15 WBC (3.8-10.6) k/uL RBC (4.30-5.90) m/uL Hgb (13.0-17.5) gm/dL Hct (39.0-53.0) % MCV (80.0-100.0) fL MCH (25.0-35.0) pg MCHC (31.0-37.0) g/dL RDW (11.5-15.5) % Plt Count (150-450) k/uL MPV Neutrophils % % Lymphocytes % % Monocytes % % Eosinophils % % Basophils % % Neutrophils # (1.3-7.7) k/uL Lymphocytes # (1.0-4.8) k/uL Monocytes # (0-1.0) k/uL Eosinophils # (0-0.7) k/uL Basophils # (0-0.2) k/uL ESR 28 H Sodium (137-145) mmol/L Potassium (3.5-5.1) mmol/L Chloride (98-107) mmol/L Carbon Dioxide (22-30) mmol/L Anion Gap mmol/L BUN (9-20) mg/dL Creatinine (0.66-1.25) mg/dL Est GFR (CKD-EPI)AfAm (>60 ml/min/1.73 sqM) Est GFR (CKD-EPI)NonAf (>60 ml/min/1.73 sqM) Glucose (74-99) mg/dL Lactic Ac Sepsis Rflx Plasma Lactic Acid Nabil (0.7-2.0) mmol/L Calcium (8.4-10.2) mg/dL Total Bilirubin (0.2-1.3) mg/dL AST (17-59) U/L ALT (4-49) U/L Alkaline Phosphatase (38-126) U/L Creatine Kinase (55-170) U/L CK-MB (CK-2) (0.0-2.4) ng/mL Total Protein (6.3-8.2) g/dL Albumin (3.5-5.0) g/dL Disposition Clinical Impression: Cellulitis Disposition: ADMITTED IP TO THIS HOSP Condition: Fair Is patient prescribed a controlled substance at d/c from ED?: No
[2022-06-03 16:48] LABS: Basophils # (A) 0.1 k/uL (0-0.2); Basophils % (A) 1 %; Eosinophils # (A) 0.2 k/uL (0-0.7); Eosinophils % (A) 2 %; HCT 48.8 % (39.0-53.0); HGB 15.7 gm/dL (13.0-17.5); Lymphocytes # (A) 1.3 k/uL (1.0-4.8); Lymphocytes % (A) 11 %; MCH 32.1 pg (25.0-35.0); MCHC 32.1 g/dL (31.0-37.0); MCV 99.9 fL (80.0-100.0); Mean Platelet Volume 7.9; Monocytes # (A) 0.5 k/uL (0-1.0); Monocytes % (A) 4 %; Neutrophils # (A) 9.5 k/uL (1.3-7.7); Neutrophils % (A) 79 %; Platelet Count 268 k/uL (150-450); RBC 4.89 m/uL (4.30-5.90); RDW 12.9 % (11.5-15.5); WBC 12.1 k/uL (3.8-10.6)
[2022-06-03 16:56] LABS: Albumin 3.9 g/dL (3.5-5.0); Calcium 8.9 mg/dL (8.4-10.2); Potassium 5.1 mmol/L (3.5-5.1); Total Bilirubin 0.8 mg/dL (0.2-1.3); Total Protein 6.4 g/dL (6.3-8.2)
[2022-06-03] MEDS ORDERED: SODIUM CHLORIDE 0.9% 1,000 ML IV STA (17:36)
--- NOTE | 2022-06-03 18:05 | US ---
EXAMINATION TYPE: US venous doppler duplex LE RT DATE OF EXAM: 06/03/2022 5:47 PM COMPARISON: NONE CLINICAL HISTORY: pain/swelling, possible DVT. Right leg swelling and redness. Patient stated he is o n blood thinners, no hx of DVT. Patient states he has a leg infection and is taking antibiotics. SIDE PERFORMED: Right TECHNIQUE: The lower extremity deep venous system is examined utilizing real time linear array sonog mei with graded compression, doppler sonography and color-flow sonography. VESSELS IMAGED: Common Femoral Vein Deep Femoral Vein Greater Saphenous Vein * Femoral Vein Popliteal Vein Small Saphenous Vein * Proximal Calf Veins (* superficial vessels) Right Leg: Negative for DVT. Lymph node seen in right groin measuring 3.1 x 2.4 x 1.5 cm. Impression No evidence of deep vein thrombosis in the right leg. There is prominent right inguinal lymph node.
[2022-06-03] MEDS ORDERED: HYDROmorphone 0.5 MG/0.5 ML SYRINGE IVP STA (18:45)
[2022-06-03] MEDS ORDERED: VANCOMYCIN IV PER PHARMACY 1 EACH MISC MISCELLANE PRN (19:43)
[2022-06-03] MEDS ORDERED: VANCOMYCIN 2,000 MG in SODIUM CHLORIDE 0.9% 500 ML 500 ML IVPB ONE (20:30)
[2022-06-03] MEDS ORDERED: MAG HYDROX/AL HYDROX/SIMETH 30 ML CUP PO PRN (20:41)
[2022-06-03] MEDS ORDERED: TEMAZEPAM 15 MG CAP PO PRN (20:41)
[2022-06-03] MEDS ORDERED: NALOXONE 0.4 MG/ML 1 ML VIAL IV PRN (20:41)
[2022-06-03] MEDS ORDERED: ACETAMINOPHEN TAB 325 MG TAB PO PRN (20:41)
[2022-06-03] MEDS: SODIUM CHLORIDE 0.9% 1,000 ML IV SCH (20:48)
[2022-06-03] MEDS: FAMOTIDINE 20 MG TAB PO SCH (20:56)
--- NOTE | 2022-06-03 22:58 | P.HPIM ---
History of Present Illness H&P Date: 06/03/22 The patient is a 82-year-old male with a PMH of A. fib on Eliquis, hypertension, and hyperlipidemia who presents to the emergency room with complaints of right lower extremity pain and swelling. The patient was recently admitted to the hospital from 05/30 to 06/01 for right lower extremity cellulitis and was discharged home on Keflex. The patient reports however that his symptoms again worsened shortly after arrival at home, and have failed to improve. He reports chills and right lower extremities pain, 10 out of 10, constant, over the past 2 days. Venous Doppler right lower extremity was negative for DVT with laboratory evaluation remarkable for lactic acid 2.7, WBC count 12.1. The patient reports that his pain had significantly improved at the time of interview, rated at a 4 out of 10. He denied additional complaints. She denied experiencing chest discomfort, shortness of breath, nausea, vomiting, abdominal pain, diarrhea. Review of systems: Pertinent positives and negatives as discussed in HPI, a complete review of systems was performed and all other systems are negative. Physical examination: General: non toxic, no distress, appears at stated age, obese Derm: Right lower extremity erythema, warmth, and induration to upper ibarra, warm Head: atraumatic, normocephalic, symmetric Eyes: EOMI, no lid lag, anicteric sclera, pupils equal round reactive to light ENT: Nose and ears atraumatic Neck: No cervical lymphadenopathy, trachea midline, supple Mouth: no lip lesion, mucus membranes moist Cardiovascular: Irregularly irregular, no murmur, positive dorsalis pedis pulse bilateral, no edema Lungs: CTA bilateral, no rhonchi, no rales, no accessory muscle use Abdominal: soft, nontender to palpation, no guarding Ext: muscle strength 5 out of 5 in all 4 extremities grossly, no gross muscle atrophy, no contractures, Neuro: CN II-XI grossly intact, no gross focal neuro deficits Psych: Alert, oriented, appropriate affect Assessment/plan Severe sepsis suspected secondary to right lower extremity cellulitis -Continue with IV broad-spectrum antibiotics including vancomycin and cefazolin -Follow up cultures -IV fluids -Infectious disease consulted -Pain control Lactic acidosis -Continue with IV fluids -Monitor for resolution Chronic conditions: A. fib, hypertension, hyperlipidemia -Continue with home meds DVT prophylaxis -Eliquis The patient is admitted with an anticipated greater than 2 midnight stay for evaluation of Cellulitis CODE STATUS: No Code Discussed with: Patient Anticipated discharge date: 06/[address]: Home Past Medical History Past Medical History: Atrial Fibrillation, Heart Failure, GERD/Reflux, Hyperlipidemia, Neurologic Disorder Additional Past Medical History / Comment(s): Neuropathy History of Any Multi-Drug Resistant Organisms: None Reported Past Surgical History: Cholecystectomy, Coronary Bypass/CABG Additional Past Surgical History / Comment(s): CABG (4 vessel) 1997, 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 Past Psychological History: No Psychological Hx Reported Smoking Status: Never smoker Past Alcohol Use History: Occasional Past Drug Use History: None Reported - Past Family History Mother Family Medical History: Chest Pain / Angina Medications and Allergies Home Medications Medication Instructions Recorded Confirmed Type Apixaban [Eliquis] 2.5 mg PO BID 03/30/19 06/03/22 History Aspirin EC [Ecotrin Low Dose] 81 mg PO W/SUPPER 03/30/19 06/03/22 History Omeprazole 20 mg PO DAILY 03/30/19 06/03/22 History Simvastatin [Zocor] 40 mg PO W/SUPPER 03/30/19 06/03/22 History Focus Select Areds2 1 tab PO BID 05/30/22 06/03/22 History Furosemide [Lasix] 60 mg PO DAILY 05/30/22 06/03/22 History Gabapentin 800 mg PO ACHS 05/30/22 06/03/22 History Spironolactone [Aldactone] 50 mg PO DAILY 05/30/22 06/03/22 History prednisoLONE ACETATE 1% OPHTH 1 drop LEFT EYE MOWEFR@2100 05/30/22 06/03/22 History [Pred Forte 1%] Amoxic-Pot Clav 875-125Mg 1 tab PO BID 10 Days #20 tab 06/01/22 06/03/22 Rx [Augmentin 875-125] Allergies Allergy/AdvReac Type Severity Reaction Status Date / Time No Known Allergies Allergy Verified 06/03/22 18:02 Physical Exam Vitals: Vital Signs Temp Pulse Resp BP Pulse Ox 06/03/22 21:36 99.8 F H 06/03/22 21:01 94 L 06/03/22 21:00 94 17 118/73 89 L 06/03/22 20:30 102.7 F H 107 H 18 115/64 93 L 06/03/22 18:53 89 22 137/73 98 06/03/22 16:44 95 18 114/64 97 06/03/22 11:30 98 F 91 20 115/72 98 Intake and Output 06/03/22 06/03/22 06/03/22 06:59 14:59 22:59 Other: Weight 104.326 kg Results CBC & Chem 7: 06/03/22 16:38 06/03/22 16:38 Labs: Abnormal Lab Results - Last 24 Hours (Table) 06/03/22 06/03/22 Range/Units 16:38 16:38 WBC 12.1 H (3.8-10.6) k/uL Neutrophils # 9.5 H (1.3-7.7) k/uL Plasma Lactic Acid Nabil 2.7 H* (0.7-2.0) mmol/L
--- NOTE | 2022-06-03 23:01 | P.PN ---
Progress Note - Text Progress Note Date: 06/03/22 Advanced Care Planning Active Diagnosis: Right lower extremity cellulitis Persons present: Patient Summary: Discussed the patient's goals of care in great detail. The patient reported that in light of his multiple medical conditions and his advanced age, that he does not wish to undergo CPR or be placed on a ventilator in the event of cardiac arrest. The patient reported that he will however consider elective forms of life support including dialysis, IV pressors, and elective intubation on a [id number] basis. Explained the caveats of CPR and the different forms of life support offered with all questions answered. Will make the patient a No- Code as per his wishes. Time spent: Total time spent face to face in education and discussion directly related to advanced care plannin minutes
[2022-06-04] MEDS: oxyCODONE-APAP 5-325MG 1 EACH TAB PO PRN ×3 (00:37→14:21)
[2022-06-04] MEDS: HYDROmorphone 0.5 MG/0.5 ML SYRINGE IVP PRN ×2 (05:17→09:22)
[2022-06-04] MEDS: GABAPENTIN 400 MG CAP PO SCH ×4 (07:23→20:36)
[2022-06-04] MEDS: FAMOTIDINE 20 MG TAB PO SCH ×2 (08:16→20:37)
[2022-06-04] MEDS: APIXABAN 2.5 MG TABLET PO SCH ×2 (08:16→20:37)
[2022-06-04] MEDS: FUROSEMIDE 20 MG TAB PO SCH (08:16)
[2022-06-04] MEDS: SPIRONOLACTONE 25 MG TAB PO SCH (08:16)
[2022-06-04] MEDS: PANTOPRAZOLE 40 MG TABLET PO SCH (08:16)
[2022-06-04] MEDS: SODIUM CHLORIDE 0.9% 1,000 ML IV SCH ×3 (08:21→20:37)
[2022-06-04] MEDS ORDERED: VANCOMYCIN 1,750 MG in SODIUM CHLORIDE 0.9% 500 ML 500 ML IVPB SCH (10:00)
[2022-06-04] MEDS: ATORVASTATIN 20 MG TAB PO SCH (17:33)
[2022-06-04] MEDS: ASPIRIN 81 MG PO SCH (17:33)
--- NOTE | 2022-06-04 18:30 | P.PN ---
Subjective Progress Note Date: 06/04/22 (delayed charting seen at 1115) The patient is a 82-year-old male withA. fib on Eliquis, hypertension, and hyperlipidemia who presents to the emergency department with complaints of right lower extremity pain and swelling. The patient was recently admitted to the hospital from 05/30 - 06/01 for right lower extremity cellulitis and was discharged home on Augmentin. His redness and swelling continued to worsen so he represented to the ER. In the ER he underwent an extensive evaluation. Laborat ory analysis was remarkable for lactic acid 12.7, white blood cell count 12.1. He underwent a lower extremity venous Doppler which was negative for DVT. Arrangements are made for admission. He was started on cephalexin and vancomycin. Infectious disease was consulted. Patient seen and examined at bedside with family present. He reports he is continuing to have pain in his right lower extremity as well as swelling. He has had cellulitis multiple times in the past but it is always on his left lower cavity. He believes this started after he went to the and use the pool and scraped his toes on the edge. He denies any nausea, vomiting, diarrhea. He was compliant with his antibiotics at home. He denies any history of MRSA. General: nontoxic, no distress, appears at stated age Derm: Edema with taut skin, erythema, warmth from right toes up to knee, warm, dry Head: atraumatic, normocephalic, symmetric Eyes: EOMI, no lid lag, anicteric sclera Mouth: no lip lesion, mucus membranes moist Cardiovascular: S1S2 reg, no murmur, positive posterior tibial pulse bilateral, Lungs: CTA bilateral, no rhonchi, no rales , no accessory muscle use Abdominal: soft, nontender to palpation, no guarding, no appreciable organomegaly Ext: no gross muscle atrophy, bilateral lower extremity edema right greater than left no contractures Neuro: CN II-XI grossly intact, no focal neuro deficits Psych: Alert, oriented, appropriate affect Assessment/plan: Right lower extremity cellulitis with severe sepsis -Continue with IV broad-spectrum antibiotics including vancomycin and cefazolin -Follow up cultures -IV fluids -Infectious disease recs - nursing outline area of cellultis - AMELIA wrap, elevate legs -Pain control A fib - Eliquis - not on rate controlling meds - monitor HR HTN, controlled - lasix/aldactone - follow BP HLD - statin Patient was transitioned to inpatient status. He has failed outpatient treatment of his cellulitis as he was discharged home on Augmentin and has con tinued to have worsening. He also came back in with sepsis and elevated lactic acid of 2.7. He therefore warns inpatient admission and will likely need prolonged course of IV antibiotics. Lactic acidosis, resolved DVT prophylaxis: Eliquis Discussed with: Patient, , son Anticipated discharge date: in 2-[address]: Home Objective - Vital Signs Vital signs: Vital Signs Temp 98.6 F 06/04/22 14:24 Pulse 80 06/04/22 14:24 Resp 12 06/04/22 14:24 BP 106/65 06/04/22 14:24 Pulse Ox 97 06/04/22 14:24 FiO2 Intake & Output 06/03/22 06/04/22 06/04/22 18:59 06:59 18:59 Intake Total 260 236 Output Total 500 Balance 260 -264 Weight 104.326 kg 104.326 kg Intake: Intake, IV Titration 260 Amount Sodium Chloride 0.9% 1, 260 000 ml @ 75 mls/hr IV . [id number] [facility] Rx#:[id number] Oral 236 Output: Urine 500 Other: # Voids 1 - Labs CBC & Chem 7: 06/03/22 16:38 06/03/22 16:38 Labs: Abnormal Lab Results - Last 24 Hours (Table) 06/03/22 Range/Units 22:15 ESR 28 H (0-15) mm/hr
[2022-06-04] MEDS: KETOROLAC 15 MG/ML 1 ML VIAL IVP PRN (20:36)
[2022-06-04] MEDS: prednisoLONE ACETATE 1% OPHTH DROPS 5 ML BTL LEFT EYE SCH (20:58)
--- NOTE | 2022-06-04 22:50 | P.CONS ---
History of Present Illness - Reason for Consult Consult date: 06/04/22 - History of Present Illness Patient is a 82-year male who was recently admitted to this hospital patient presented with a fever and rigors he did have a mild right lower extremity cellulitis patient also have a CT abdominal pelvis with concern for possible diverticulitis patient was initially on cefazolin subsequently switched over to Unasyn patient did have overall resolution of his fever and the patient was feeling better patient was discharged home on oral Augmentin to cover for both diverticulitis and lower extremity cellulitis patient now presenting back to the hospital for evaluation of increasing swelling to the right lower extremity and the patient mentioned getting worse for a day before presentation to the hospital patient been complaining of some diffuse dull aching pain intensity is about 5-6 out of 10 no radiation patient did have a fever of 102.7 degrees formulae at on arrival to the ER he did have white count of 12.1 with a left shift lactic acid was 2.7 no exams are normal patient did have a right lower extremity Doppler that was negative for DVT patient was started on cefazolin and vancomycin and admitted to hospital infectious disease was consulted for further management of antibiotic therapy Past Medical History Past Medical History: Atrial Fibrillation, Heart Failure, GERD/Reflux, Hyperlipidemia, Neurologic Disorder Additional Past Medical History / Comment(s): Neuropathy History of Any Multi-Drug Resistant Organisms: None Reported Past Surgical History: Cholecystectomy, Coronary Bypass/CABG Additional Past Surgical History / Comment(s): CABG (4 vessel) 1997, 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 Past Psychological History: No Psychological Hx Reported Smoking Status: Never smoker Past Alcohol Use History: Occasional Past Drug Use History: None Reported - Past Family History Mother Family Medical History: Chest Pain / Angina Medications and Allergies Home Medications Medication Instructions Recorded Confirmed Type Apixaban [Eliquis] 2.5 mg PO BID 03/30/19 06/03/22 History Aspirin EC [Ecotrin Low Dose] 81 mg PO W/SUPPER 03/30/19 06/03/22 History Omeprazole 20 mg PO DAILY 03/30/19 06/03/22 History Simvastatin [Zocor] 40 mg PO W/SUPPER 03/30/19 06/03/22 History Focus Select Areds2 1 tab PO BID 05/30/22 06/03/22 History Furosemide [Lasix] 60 mg PO DAILY 05/30/22 06/03/22 History Gabapentin 800 mg PO ACHS 05/30/22 06/03/22 History Spironolactone [Aldactone] 50 mg PO DAILY 05/30/22 06/03/22 History prednisoLONE ACETATE 1% OPHTH 1 drop LEFT EYE MOWEFR@2100 05/30/22 06/03/22 History [Pred Forte 1%] Amoxic-Pot Clav 875-125Mg 1 tab PO BID 10 Days #20 tab 06/01/22 06/03/22 Rx [Augmentin 875-125] Allergies Allergy/AdvReac Type Severity Reaction Status Date / Time No Known Allergies Allergy Verified 06/03/22 18:02 Physical Exam Vitals: Vital Signs Temp Pulse Pulse Resp BP BP BP 06/04/22 07:00 97.4 F L 96 17 124/73 06/04/22 01:48 99.4 F 87 16 100/59 06/04/22 00:51 98.4 F 84 16 107/64 06/03/22 21:49 99.1 F 92 18 98/58 06/03/22 21:36 99.8 F H 06/03/22 21:01 06/03/22 21:00 94 17 118/73 06/03/22 20:30 102.7 F H 107 H 18 115/64 06/03/22 18:53 89 22 137/73 06/03/22 16:44 95 18 114/64 06/03/22 11:30 98 F 91 20 115/72 Pulse Ox 06/04/22 07:00 94 L 06/04/22 01:48 94 L 06/04/22 00:51 95 06/03/22 21:49 94 L 06/03/22 21:36 06/03/22 21:01 94 L 06/03/22 21:00 89 L 06/03/22 20:30 93 L 06/03/22 18:53 98 06/03/22 16:44 97 06/03/22 11:30 98 Intake and Output 06/03/22 06/04/22 06/04/22 22:59 06:59 14:59 Intake Total 260 Balance 260 Intake: Intake, IV Titration 260 Amount Sodium Chloride 0.9% 1, 260 000 ml @ 130 mls/hr IV . [id number] [facility] Rx#:[id number] Other: # Voids 1 Weight 104.326 kg Results CBC & Chem 7: 06/03/22 16:38 06/03/22 16:38 Labs: Abnormal Lab Results - Last 24 Hours (Table) 06/03/22 06/03/22 06/03/22 Range/Units 16:38 16:38 22:15 WBC 12.1 H (3.8-10.6) k/uL Neutrophils # 9.5 H (1.3-7.7) k/uL ESR 28 H (0-15) mm/hr Plasma Lactic Acid Nabil 2.7 H* (0.7-2.0) mmol/L Assessment and Plan Plan: 1patient is a hospital with sepsis in this patient have fever elevated white count elevated lactic acid sources include right lower extremity cellulitis in this patient with diffuse swelling redness likely streptococcal disease failing outpatient oral Augmentin therapy more likely because of the burden of disease. 2marked the area of redness. 3Ace wrap to the right leg from just above the toe to below the knee change daily. 4continue with the cefazolin however discontinue vancomycin. We will follow on clinical condition and cultures to further adjust medication if needed Thank you for this consultation will follow this patient along with you
[2022-06-05 05:19] LABS: HCT 41.8 % (39.0-53.0); HGB 13.6 gm/dL (13.0-17.5); MCH 32.8 pg (25.0-35.0); MCHC 32.5 g/dL (31.0-37.0); MCV 100.8 fL (80.0-100.0); Platelet Count 272 k/uL (150-450); RBC 4.14 m/uL (4.30-5.90); RDW 13.3 % (11.5-15.5); WBC 14.7 k/uL (3.8-10.6)
[2022-06-05 05:31] LABS: African American GFR (CKD) 74 (>60 ml/min/1.73 sqM); Anion Gap 13 mmol/L; Blood Urea Nitrogen 21 mg/dL (9-20); Calcium 8.4 mg/dL (8.4-10.2); Carbon Dioxide 20 mmol/L (22-30); Chloride 102 mmol/L (98-107); Glucose 101 mg/dL (74-99); Non-African American GFR(CKD) 64 (>60 ml/min/1.73 sqM); Potassium 4.1 mmol/L (3.5-5.1); Sodium 135 mmol/L (137-145)
[2022-06-05] MEDS: KETOROLAC 15 MG/ML 1 ML VIAL IVP PRN ×2 (06:09→20:48)
[2022-06-05] MEDS: FUROSEMIDE 20 MG TAB PO SCH (09:20)
[2022-06-05] MEDS: GABAPENTIN 400 MG CAP PO SCH ×4 (09:21→20:49)
[2022-06-05] MEDS: FAMOTIDINE 20 MG TAB PO SCH ×2 (09:21→20:49)
[2022-06-05] MEDS: SPIRONOLACTONE 25 MG TAB PO SCH (09:21)
[2022-06-05] MEDS: APIXABAN 2.5 MG TABLET PO SCH ×2 (09:21→20:49)
[2022-06-05] MEDS: PANTOPRAZOLE 40 MG TABLET PO SCH (09:21)
[2022-06-05] MEDS: SODIUM CHLORIDE 0.9% 1,000 ML IV SCH ×2 (10:00→20:49)
--- NOTE | 2022-06-05 16:25 | P.PN ---
Subjective Progress Note Date: 06/05/22 (delayed charting seen at 0915) The patient is a 82-year-old male withA. fib on Eliquis, hypertension, and hyperlipidemia who presents to the emergency department with complaints of right lower extremity pain and swelling. The patient was recently admitted to the hospital from 05/30 - 06/01 for right lower extremity cellulitis and was discharged home on Augmentin. His redness and swelling continued to worsen so he represented to the ER. In the ER he underwent an extensive evaluation. Laborat ory analysis was remarkable for lactic acid 12.7, white blood cell count 12.1. He underwent a lower extremity venous Doppler which was negative for DVT. Arrangements are made for admission. He was started on cephalexin and vancomycin. Infectious disease was consulted and stopped vanco. The next day the erythema was more intense and edema was increased and he was transitioned to unasyn. Patient seen and examined at bedside. He continues to complain of pain. He states it is sharp from his toes to this heel intermittently and then constant throbbing ache in the calf. He denies any n/v/diarrhea. No other complaints. General: nontoxic, no distress, appears at stated age Derm: Edema with taut skin, erythema, warmth from right toes up to knee- worsened in intensity of erythema from yesterday, warm, dry Head: atraumatic, normocephalic, symmetric Eyes: EOMI, no lid lag, anicteric sclera Mouth: no lip lesion, mucus membranes moist Cardiovascular: S1S2 reg, no murmur, positive posterior tibial pulse bilateral, Lungs: CTA bilateral, no rhonchi, no rales , no accessory muscle use Abdominal: soft, nontender to palpation, no guarding, no appreciable organomegaly Ext: no gross muscle atrophy, bilateral lower extremity edema right greater than left no contractures Neuro: CN II-XI grossly intact, no focal neuro deficits Psych: Alert, oriented, appropriate affect Assessment/plan: Right lower extremity cellulitis with severe sepsis -D/W ID transition Abx to unasym -Follow up cultures -IV fluids - AMELIA wrap, elevate legs -Pain control A fib - Eliquis - not on rate controlling meds - monitor HR HTN, controlled - lasix/aldactone - follow BP HLD - statin Lactic acidosis, resolved DVT prophylaxis: Eliquis Discussed with: Patient, , son Anticipated discharge date: in 2-[address]: Home Active Medications Generic Name Dose Route Start Last Admin Trade Name Freq PRN Reason Stop Dose Admin Acetaminophen 650 mg 06/03/22 20:41 06/03/22 20:56 Acetaminophen Tab 325 Mg Tab PO 650 mg Q6HR PRN Administration Mild Pain or Fever > 100.5 Al Hydroxide/Mg Hydroxide 15 ml 06/03/22 20:41 Mag Hydrox/Al Hydrox/Simeth 30 Ml Cup PO Q6HR PRN Indigestion Apixaban 2.5 mg 06/04/22 09:00 06/05/22 09:21 Apixaban 2.5 Mg Tablet PO 2.5 mg BID ALFRED Administration Protocol Aspirin 81 mg 06/04/22 17:30 06/04/22 17:33 Aspirin 81 Mg PO 81 mg W/SUPPER ALFRED Administration Atorvastatin Calcium 20 mg 06/04/22 17:30 06/04/22 17:33 Atorvastatin 20 Mg Tab PO 20 mg W/SUPPER ALFRED Administration Famotidine 20 mg 06/03/22 21:00 06/05/22 09:21 Famotidine 20 Mg Tab PO 20 mg BID ALFRED Administration Furosemide 60 mg 06/04/22 09:00 06/05/22 09:20 Furosemide 20 Mg Tab PO 60 mg DAILY ALFRED Administration Gabapentin 800 mg 06/04/22 07:30 06/05/22 12:59 Gabapentin 400 Mg Cap PO 800 mg ACHS ALFRED Administration Hydromorphone HCl 0.5 mg 06/03/22 20:41 06/04/22 09:22 Hydromorphone 0.5 Mg/0.5 Ml Syringe IVP 0.5 mg Q3HR PRN Administration Moderate Pain (Scale 4 to 6) Sodium Chloride 1,000 mls @ 75 mls/hr 06/03/22 20:45 06/05/22 10:00 Saline 0.9% IV 75 mls/hr .[id number] ALFRED Administration Ampicillin Sodium/Sulbactam 100 mls @ 200 mls/hr 06/05/22 18:00 Sodium 3 gm/ Sodium Chloride IVPB Q6HR ALFRED Protocol Ketorolac Tromethamine 15 mg 06/04/22 11:16 06/05/22 06:09 Ketorolac 15 Mg/Ml 1 Ml Vial IVP 06/07/22 11:16 15 mg Q6HR PRN Administration Pain Naloxone HCl 0.2 mg 06/03/22 20:41 Naloxone 0.4 Mg/Ml 1 Ml Vial IV Q2M PRN Opioid Reversal Oxycodone/Acetaminophen 1 each 06/03/22 20:41 06/04/22 14:21 Oxycodone-Apap 5-325mg 1 Each Tab PO 1 each Q4HR PRN Administration Severe Pain (Scale 7 to 10) Pantoprazole Sodium 40 mg 06/04/22 09:00 06/05/22 09:21 Pantoprazole 40 Mg Tablet PO 40 mg DAILY ALFRED Administration Prednisolone Acetate 1 drops 06/04/22 21:00 06/04/22 20:58 Prednisolone Acetate 1% Ophth Drops 5 Ml Btl LEFT EYE 1 drops [id number]@2100 ALFRED Administration Spironolactone 50 mg 06/04/22 09:00 06/05/22 09:21 Spironolactone 25 Mg Tab PO 50 mg DAILY ALFRED Administration Objective - Vital Signs Vital signs: Vital Signs Temp 98.6 F 06/05/22 14:00 Pulse 89 06/05/22 14:00 Resp 18 06/05/22 14:00 BP 110/63 06/05/22 14:00 Pulse Ox 96 06/05/22 14:00 FiO2 Intake & Output 06/04/22 06/05/22 06/05/22 18:59 06:59 18:59 Intake Total 354 236 Output Total 500 Balance -146 236 Intake: Oral 354 236 Output: Urine 500 Other: Voiding Method Toilet Toilet # Voids 2 - Labs CBC & Chem 7: 06/05/22 04:56 06/05/22 04:56 Labs: Abnormal Lab Results - Last 24 Hours (Table) 06/05/22 06/05/22 Range/Units 04:56 04:56 WBC 14.7 H (3.8-10.6) k/uL RBC 4.14 L (4.30-5.90) m/uL MCV 100.8 H (80.0-100.0) fL Sodium 135 L (137-145) mmol/L Carbon Dioxide 20 L (22-30) mmol/L BUN 21 H (9-20) mg/dL Glucose 101 H (74-99) mg/dL Microbiology - Last 24 Hours (Table) 06/03/22 20:45 Blood Culture - Preliminary Blood No Growth after 24 hours 06/03/22 20:30 Blood Culture - Preliminary Blood No Growth after 24 hours
[2022-06-05] MEDS: ATORVASTATIN 20 MG TAB PO SCH (17:28)
[2022-06-05] MEDS: ASPIRIN 81 MG PO SCH (17:28)
[2022-06-05] MEDS: AMPICILLIN-SULBACTAM 3 GM in SODIUM CHLORIDE 0.9% 100 ML IVPB SCH (17:53)
--- NOTE | 2022-06-05 23:10 | P.PN ---
Subjective Progress Note Date: 06/05/22 Principal diagnosis: Right lower extremity cellulitis Patient is 82 year old male presenting to the hospital with increasing swelling redness of the right lower extremity has been diagnosed with a cellulitis Doppler has been negative for DVT. On today's evaluation is 06/05/2022, the patient denies having any fever or any chills patient is still complaining of significant swelling and redness to the right lower extremity but no worsening pain patient currently with no open wound or any drainage, the patient denies chest pain shortness of breath or cough no abdominal pain or diarrhea Objective - Vital Signs Vital signs: Vital Signs Temp 98.6 F 06/05/22 14:00 Pulse 89 06/05/22 14:00 Resp 18 06/05/22 14:00 BP 110/63 06/05/22 14:00 Pulse Ox 96 06/05/22 14:00 FiO2 Intake & Output 06/04/22 06/05/22 06/05/22 18:59 06:59 18:59 Intake Total 354 236 Output Total 500 Balance -146 236 Intake: Oral 354 236 Output: Urine 500 Other: Voiding Method Toilet Toilet # Voids 2 - Exam GENERAL DESCRIPTION: An elderly male lying in bed in no distress RESPIRATORY SYSTEM: Unlabored breathing , decreased breath sounds at bases HEART: S1 S2 regular rate and rhythm , ABDOMEN: Soft , no tenderness EXTREMITIES: Swelling redness or right lower extremity which has not spread from the line placed yesterday - Labs CBC & Chem 7: 06/05/22 04:56 06/05/22 04:56 Labs: Abnormal Lab Results - Last 24 Hours (Table) 06/05/22 06/05/22 Range/Units 04:56 04:56 WBC 14.7 H (3.8-10.6) k/uL RBC 4.14 L (4.30-5.90) m/uL MCV 100.8 H (80.0-100.0) fL Sodium 135 L (137-145) mmol/L Carbon Dioxide 20 L (22-30) mmol/L BUN 21 H (9-20) mg/dL Glucose 101 H (74-99) mg/dL Microbiology - Last 24 Hours (Table) 06/03/22 20:45 Blood Culture - Preliminary Blood No Growth after 24 hours 06/03/22 20:30 Blood Culture - Preliminary Blood No Growth after 24 hours Assessment and Plan (1) Cellulitis of right lower extremity Current Visit: Yes Status: Acute Code(s): L03.115 - CELLULITIS OF RIGHT LOWER LIMB SNOMED Code(s): 990298015 Plan: 1patient is a hospital with sepsis in this patient have fever elevated white count elevated lactic acid sources include right lower extremity cellulitis in this patient with diffuse swelling redness likely streptococcal disease failing outpatient oral Augmentin therapy more likely because of the burden of disease. 2 Yariel wrap to the right leg from just above the toe to below the knee change daily. 3possible freshwater exposure antibiotic will be switched over to Unasyn and see clinical response and discussed with the admitting physician
[2022-06-06] MEDS: AMPICILLIN-SULBACTAM 3 GM in SODIUM CHLORIDE 0.9% 100 ML IVPB SCH ×4 (00:09→17:28)
[2022-06-06 05:00] LABS: HCT 40.6 % (39.0-53.0); HGB 13.2 gm/dL (13.0-17.5); MCH 33.1 pg (25.0-35.0); MCHC 32.6 g/dL (31.0-37.0); MCV 101.4 fL (80.0-100.0); Macrocytosis Slight; Platelet Count 281 k/uL (150-450); RDW 13.3 % (11.5-15.5); WBC 9.9 k/uL (3.8-10.6)
[2022-06-06 05:05] LABS: African American GFR (CKD) 68 (>60 ml/min/1.73 sqM); Anion Gap 9 mmol/L; Blood Urea Nitrogen 22 mg/dL (9-20); Calcium 8.3 mg/dL (8.4-10.2); Carbon Dioxide 22 mmol/L (22-30); Chloride 106 mmol/L (98-107); Glucose 104 mg/dL (74-99); Non-African American GFR(CKD) 59 (>60 ml/min/1.73 sqM); Potassium 4.3 mmol/L (3.5-5.1); Sodium 137 mmol/L (137-145)
[2022-06-06] MEDS: KETOROLAC 15 MG/ML 1 ML VIAL IVP PRN (06:23)
[2022-06-06] MEDS: oxyCODONE-APAP 5-325MG 1 EACH TAB PO PRN (07:55)
[2022-06-06] MEDS: GABAPENTIN 400 MG CAP PO SCH ×4 (07:55→20:16)
[2022-06-06] MEDS: SPIRONOLACTONE 25 MG TAB PO SCH (08:40)
[2022-06-06] MEDS: APIXABAN 2.5 MG TABLET PO SCH ×2 (08:40→20:16)
[2022-06-06] MEDS: FUROSEMIDE 20 MG TAB PO SCH (08:40)
[2022-06-06] MEDS: FAMOTIDINE 20 MG TAB PO SCH ×2 (08:40→20:16)
[2022-06-06] MEDS: PANTOPRAZOLE 40 MG TABLET PO SCH (08:40)
[2022-06-06] MEDS ORDERED: polyethylene glycoL 3350 17 GM POWD.PACK PO PRN (11:16)
[2022-06-06] MEDS ORDERED: FUROSEMIDE 10 MG/ML 2 ML VIAL IV SCH (11:30)
[2022-06-06] MEDS: SODIUM CHLORIDE 0.9% 1,000 ML IV SCH (12:06)
--- NOTE | 2022-06-06 14:15 | P.PN ---
Subjective Progress Note Date: 06/06/22 (delayed charting seen at 10am) Principal diagnosis: root foot erythema and pain The patient is a 82-year-old male withA. fib on Eliquis, hypertension, and hyperlipidemia who presents to the emergency department with complaints of right lower extremity pain and swelling. The patient was recently admitted to the hospital from 05/30 - 06/01 for right lower extremity cellulitis and was discharged home on Augmentin. His redness and swelling continued to worsen so he repre sented to the ER. In the ER he underwent an extensive evaluation. Laboratory analysis was remarkable for lactic acid 12.7, white blood cell count 12.1. He underwent a lower extremity venous Doppler which was negative for DVT. Arrangements are made for admission. He was started on cephalexin and vancomycin. Infectious disease was consulted and stopped vanco. The next day the erythema was more intense and edema was increased and he was transitioned to unasyn. Patient seen and examined at bedside. Pain appears slightly better, no nausea/vomiting/diarrhea. His swelling is down. Son and at bedside. All questions answered. General: nontoxic, no distress, appears at stated age Derm: Edema with edema, erythema, warmth from right toes up to knee Head: atraumatic, normocephalic, symmetric Eyes: EOMI, no lid lag, anicteric sclera Mouth: no lip lesion, mucus membranes moist Cardiovascular: S1S2 reg, no murmur, positive posterior tibial pulse bilateral, Lungs: CTA bilateral, no rhonchi, no rales , no accessory muscle use Abdominal: soft, nontender to palpation, no guarding, no appreciable organomegaly Ext: no gross muscle atrophy, bilateral lower extremity edema right greater than left no contractures Neuro: CN II-XI grossly intact, no focal neuro deficits Psych: Alert, oriented, appropriate affect Assessment/plan: Right lower extremity cellulitis with severe sepsis -Continue with unasyn D # 2 -Follow up cultures -IV fluids -AMELIA wrap, elevate legs -Pain control - lasix A fib - Eliquis - not on rate controlling meds - monitor HR HTN, controlled - lasix/aldactone - follow BP HLD - statin Lactic acidosis, resolved DVT prophylaxis: Eliquis Discussed with: Patient, , son Anticipated discharge date: in [address]: Home Active Medications Generic Name Dose Route Start Last Admin Trade Name Freq PRN Reason Stop Dose Admin Acetaminophen 650 mg 06/03/22 20:41 06/03/22 20:56 Acetaminophen Tab 325 Mg Tab PO 650 mg Q6HR PRN Administration Mild Pain or Fever > 100.5 Al Hydroxide/Mg Hydroxide 15 ml 06/03/22 20:41 Mag Hydrox/Al Hydrox/Simeth 30 Ml Cup PO Q6HR PRN Indigestion Apixaban 2.5 mg 06/04/22 09:00 06/06/22 08:40 Apixaban 2.5 Mg Tablet PO 2.5 mg BID ALFRED Administration Protocol Aspirin 81 mg 06/04/22 17:30 06/05/22 17:28 Aspirin 81 Mg PO 81 mg W/SUPPER ALFRED Administration Atorvastatin Calcium 20 mg 06/04/22 17:30 06/05/22 17:28 Atorvastatin 20 Mg Tab PO 20 mg W/SUPPER ALFRED Administration Famotidine 20 mg 06/03/22 21:00 06/06/22 08:40 Famotidine 20 Mg Tab PO 20 mg BID ALFRED Administration Furosemide 60 mg 06/04/22 09:00 06/06/22 08:40 Furosemide 20 Mg Tab PO 60 mg DAILY ALFRED Administration Furosemide 40 mg 06/06/22 19:00 Furosemide 10 Mg/Ml 4 Ml Vial IV 06/06/22 19:01 ONCE ONE Gabapentin 800 mg 06/04/22 07:30 06/06/22 12:06 Gabapentin 400 Mg Cap PO 800 mg ACHS ALFRED Administration Hydromorphone HCl 0.5 mg 06/03/22 20:41 06/04/22 09:22 Hydromorphone 0.5 Mg/0.5 Ml Syringe IVP 0.5 mg Q3HR PRN Administration Moderate Pain (Scale 4 to 6) Ampicillin Sodium/Sulbactam 100 mls @ 200 mls/hr 06/05/22 18:00 06/06/22 12:05 Sodium 3 gm/ Sodium Chloride IVPB 200 mls/hr Q6HR ALFRED Administration Protocol Ketorolac Tromethamine 15 mg 06/04/22 11:16 06/06/22 06:23 Ketorolac 15 Mg/Ml 1 Ml Vial IVP 06/07/22 11:16 15 mg Q6HR PRN Administration Pain Naloxone HCl 0.2 mg 06/03/22 20:41 Naloxone 0.4 Mg/Ml 1 Ml Vial IV Q2M PRN Opioid Reversal Oxycodone/Acetaminophen 1 each 06/03/22 20:41 06/06/22 07:55 Oxycodone-Apap 5-325mg 1 Each Tab PO 1 each Q4HR PRN Administration Severe Pain (Scale 7 to 10) Pantoprazole Sodium 40 mg 06/04/22 09:00 06/06/22 08:40 Pantoprazole 40 Mg Tablet PO 40 mg DAILY ALFRED Administration Polyethylene Glycol 17 gm 06/06/22 11:16 Polyethylene Glycol 3350 17 Gm Powd.Pack PO DAILY PRN Constipation Prednisolone Acetate 1 drops 06/04/22 21:00 06/04/22 20:58 Prednisolone Acetate 1% Ophth Drops 5 Ml Btl LEFT EYE 1 drops MOWEFR@2100 ALFRED Administration Spironolactone 50 mg 06/04/22 09:00 06/06/22 08:40 Spironolactone 25 Mg Tab PO 50 mg DAILY ALFRED Administration Objective - Vital Signs Vital signs: Vital Signs Temp 98.1 F 06/06/22 08:00 Pulse 80 06/06/22 08:00 Resp 18 06/06/22 08:00 BP 101/62 06/06/22 08:00 Pulse Ox 96 06/06/22 08:00 FiO2 Intake & Output 06/05/22 06/06/22 06/06/22 18:59 06:59 18:59 Intake Total 236 180 Output Total 320 Balance -84 180 Intake: Oral 236 180 Output: Urine 320 Other: Voiding Method Toilet Toilet Urinal # Voids 1 2 - Labs CBC & Chem 7: 06/06/22 04:32 06/06/22 04:32 Labs: Abnormal Lab Results - Last 24 Hours (Table) 06/06/22 06/06/22 Range/Units 04:32 04:32 RBC 4.00 L (4.30-5.90) m/uL MCV 101.4 H (80.0-100.0) fL BUN 22 H (9-20) mg/dL Glucose 104 H (74-99) mg/dL Calcium 8.3 L (8.4-10.2) mg/dL Microbiology - Last 24 Hours (Table) 06/03/22 20:45 Blood Culture - Preliminary Blood No Growth after 48 hours 06/03/22 20:30 Blood Culture - Preliminary Blood No Growth after 48 hours
--- NOTE | 2022-06-06 16:03 | P.PN ---
Subjective Progress Note Date: 06/06/22 Principal diagnosis: Right lower extremity cellulitis Patient is 82 year old male presenting to the hospital with increasing swelling redness of the right lower extremity has been diagnosed with a cellulitis Doppler has been negative for DVT. On today's evaluation is 06/06/2022, the patient remains to be afebrile, the patient right leg the redness is improved, however he still have significant swelling to the right leg and some weeping edema the patient denies having any chest pain shortness of breath or cough no abdominal pain or diarrhea Objective - Vital Signs Vital signs: Vital Signs Temp 98.1 F 06/06/22 08:00 Pulse 80 06/06/22 08:00 Resp 18 06/06/22 08:00 BP 101/62 06/06/22 08:00 Pulse Ox 96 06/06/22 08:00 FiO2 Intake & Output 06/05/22 06/06/22 06/06/22 18:59 06:59 18:59 Intake Total 236 180 Output Total 320 Balance -84 180 Intake: Oral 236 180 Output: Urine 320 Other: Voiding Method Toilet Toilet Urinal # Voids 1 2 - Exam GENERAL DESCRIPTION: An elderly male lying in bed in no distress RESPIRATORY SYSTEM: Unlabored breathing , decreased breath sounds at bases HEART: S1 S2 regular rate and rhythm , ABDOMEN: Soft , no tenderness EXTREMITIES: Swelling redness or right lower extremity which has not spread from the line placed yesterday - Labs CBC & Chem 7: 06/06/22 04:32 06/06/22 04:32 Labs: Abnormal Lab Results - Last 24 Hours (Table) 06/06/22 06/06/22 Range/Units 04:32 04:32 RBC 4.00 L (4.30-5.90) m/uL MCV 101.4 H (80.0-100.0) fL BUN 22 H (9-20) mg/dL Glucose 104 H (74-99) mg/dL Calcium 8.3 L (8.4-10.2) mg/dL Microbiology - Last 24 Hours (Table) 06/03/22 20:45 Blood Culture - Preliminary Blood No Growth after 48 hours 06/03/22 20:30 Blood Culture - Preliminary Blood No Growth after 48 hours Assessment and Plan (1) Cellulitis of right lower extremity Current Visit: Yes Status: Acute Code(s): L03.115 - CELLULITIS OF RIGHT LOWER LIMB SNOMED Code(s): 823752118 Plan: 1patient is a hospital with sepsis in this patient have fever elevated white count elevated lactic acid sources include right lower extremity cellulitis in this patient with diffuse swelling redness likely streptococcal disease failing outpatient oral Augmentin therapy more likely because of the burden of disease. 2 Yariel wrap to the right leg from just above the toe to below the knee change daily. 3patient seemed to show some improvement as for his cellulitis is concerned white count is down to normal blood culture negative continue with Unasyn may benefit from diuretics to get some of the swelling down Time with Patient: Less than 30
[2022-06-06] MEDS: ATORVASTATIN 20 MG TAB PO SCH (17:28)
[2022-06-06] MEDS: ASPIRIN 81 MG PO SCH (17:28)
[2022-06-06] MEDS ORDERED: FUROSEMIDE 10 MG/ML 4 ML VIAL IV ONE (19:00)
[2022-06-06] MEDS: prednisoLONE ACETATE 1% OPHTH DROPS 5 ML BTL LEFT EYE SCH (20:21)
[2022-06-07] MEDS: AMPICILLIN-SULBACTAM 3 GM in SODIUM CHLORIDE 0.9% 100 ML IVPB SCH ×5 (00:11→23:07)
[2022-06-07] MEDS: GABAPENTIN 400 MG CAP PO SCH ×4 (08:19→20:30)
[2022-06-07] MEDS: APIXABAN 2.5 MG TABLET PO SCH ×2 (08:19→20:30)
[2022-06-07] MEDS: FAMOTIDINE 20 MG TAB PO SCH ×2 (08:19→20:30)
[2022-06-07] MEDS: PANTOPRAZOLE 40 MG TABLET PO SCH (08:19)
[2022-06-07] MEDS: FUROSEMIDE 20 MG TAB PO SCH (08:19)
[2022-06-07] MEDS: SPIRONOLACTONE 25 MG TAB PO SCH (08:19)
[2022-06-07] MEDS: KETOROLAC 15 MG/ML 1 ML VIAL IVP PRN (09:58)
[2022-06-07 10:04] LABS: African American GFR (CKD) 74.3 (60.0-200.0); Anion Gap 11.4 mmol/L (10.00-18.00); BUN/Creat Ratio 19.06 Ratio (12.00-20.00); Blood Urea Nitrogen 20.2 mg/dL (9.0-27.0); Calcium 8.3 mg/dL (8.7-10.3); Non-African American GFR(CKD) 64.1 (60.0-200.0); Potassium 4.4 mmol/L (3.5-5.5)
[2022-06-07 10:08] LABS: HCT 37.4 % (39.6-50.0); HGB 12.4 g/dL (13.0-17.0); MCH 32.2 pg (27.0-32.0); MCHC 33.2 g/dL (32.0-37.0); MCV 97.1 fL (80.0-97.0); Mean Platelet Volume 10.2 fL (9.5-12.2); NRBC Per 100 WBC 0 /100 WBCS (0.0-0.0); Platelet Count 319 X 10*3/uL (140-440); RBC 3.85 X 10*6/uL (4.40-5.60); RDW 13.6 % (11.5-14.5)
[2022-06-07] MEDS: oxyCODONE-APAP 5-325MG 1 EACH TAB PO PRN ×2 (12:09→20:31)
--- NOTE | 2022-06-07 14:11 | P.PN ---
Subjective Progress Note Date: 06/07/22 Principal diagnosis: root foot erythema and pain The patient is a 82-year-old male withA. fib on Eliquis, hypertension, and hyperlipidemia who presents to the emergency department with complaints of right lower extremity pain and swelling. The patient was recently admitted to the hospital from 05/30 - 06/01 for right lower extremity cellulitis and was discharged home on Augmentin. His redness and swelling continued to worsen so he represented to the ER. In the ER he underwent an extensive evaluation. Laboratory analysis was remarkable for lactic acid 12.7, white blood cell count 12.1. He underwent a lower extremity venous Doppler which was negative for DVT. Arrangements are made for admission. He was started on cephalexin and vancomycin. Infectious disease was consulted and stopped vanco. The next day the erythema was more intense and edema was increased and he was transitioned to unasyn. Patient seen and examined at bedside. Doing okay, still having pain, no nausea, no vomiting. Still no bowel movement. Took Miralax this AM. General: nontoxic, no distress, appears at stated age Derm: Edema with edema, erythema, warmth from right toes up to knee Head: atraumatic, normocephalic, symmetric Eyes: EOMI, no lid lag, anicteric sclera Mouth: no lip lesion, mucus membranes moist Cardiovascular: S1S2 reg, no murmur, positive posterior tibial pulse bilateral, Lungs: CTA bilateral, no rhonchi, no rales , no accessory muscle use Abdominal: soft, nontender to palpation, no guarding, no appreciable organomegaly Ext: no gross muscle atrophy, bilateral lower extremity edema right greater than left no contractures Neuro: CN II-XI grossly intact, no focal neuro deficits Psych: Alert, oriented, appropriate affect Assessment/plan: Right lower extremity cellulitis with severe sepsis -Continue with unasyn D # 3 -Follow up cultures -IV fluids -AMELIA wrap, elevate legs -Pain control - lasix Constipation - Miralax A fib - Eliquis - not on rate controlling meds - monitor HR HTN, controlled - lasix/aldactone - follow BP HLD - statin Lactic acidosis, resolved DVT prophylaxis: Eliquis Discussed with: Patient, , son Anticipated discharge date: in [address]: Home Active Medications Generic Name Dose Route Start Last Admin Trade Name Freq PRN Reason Stop Dose Admin Acetaminophen 650 mg 06/03/22 20:41 06/03/22 20:56 Acetaminophen Tab 325 Mg Tab PO 650 mg Q6HR PRN Administration Mild Pain or Fever > 100.5 Al Hydroxide/Mg Hydroxide 15 ml 06/03/22 20:41 Mag Hydrox/Al Hydrox/Simeth 30 Ml Cup PO Q6HR PRN Indigestion Apixaban 2.5 mg 06/04/22 09:00 06/07/22 08:19 Apixaban 2.5 Mg Tablet PO 2.5 mg BID ALFRED Administration Protocol Aspirin 81 mg 06/04/22 17:30 06/06/22 17:28 Aspirin 81 Mg PO 81 mg W/SUPPER ALFRED Administration Atorvastatin Calcium 20 mg 06/04/22 17:30 06/06/22 17:28 Atorvastatin 20 Mg Tab PO 20 mg W/SUPPER ALFRED Administration Famotidine 20 mg 06/03/22 21:00 06/07/22 08:19 Famotidine 20 Mg Tab PO 20 mg BID ALFRED Administration Furosemide 60 mg 06/04/22 09:00 06/07/22 08:19 Furosemide 20 Mg Tab PO 60 mg DAILY ALFRED Administration Gabapentin 800 mg 06/04/22 07:30 06/07/22 12:09 Gabapentin 400 Mg Cap PO 800 mg ACHS ALFRED Administration Hydromorphone HCl 0.5 mg 06/03/22 20:41 06/04/22 09:22 Hydromorphone 0.5 Mg/0.5 Ml Syringe IVP 0.5 mg Q3HR PRN Administration Moderate Pain (Scale 4 to 6) Ampicillin Sodium/Sulbactam 100 mls @ 200 mls/hr 06/05/22 18:00 06/07/22 12:15 Sodium 3 gm/ Sodium Chloride IVPB 200 mls/hr Q6HR ALFRED Administration Protocol Naloxone HCl 0.2 mg 06/03/22 20:41 Naloxone 0.4 Mg/Ml 1 Ml Vial IV Q2M PRN Opioid Reversal Oxycodone/Acetaminophen 1 each 06/03/22 20:41 06/07/22 12:09 Oxycodone-Apap 5-325mg 1 Each Tab PO 1 each Q4HR PRN Administration Severe Pain (Scale 7 to 10) Pantoprazole Sodium 40 mg 06/04/22 09:00 06/07/22 08:19 Pantoprazole 40 Mg Tablet PO 40 mg DAILY ALFRED Administration Polyethylene Glycol 17 gm 06/06/22 11:16 06/07/22 08:25 Polyethylene Glycol 3350 17 Gm Powd.Pack PO 17 gm DAILY PRN Administration Constipation Prednisolone Acetate 1 drops 06/04/22 21:00 06/06/22 20:21 Prednisolone Acetate 1% Ophth Drops 5 Ml Btl LEFT EYE 1 drops [id number]@2100 ALFRED Administration Spironolactone 50 mg 06/04/22 09:00 06/07/22 08:19 Spironolactone 25 Mg Tab PO 50 mg DAILY ALFRED Administration Objective - Vital Signs Vital signs: Vital Signs Temp 98.2 F 06/07/22 08:00 Pulse 99 06/07/22 08:00 Resp 18 06/07/22 08:00 BP 116/70 06/07/22 08:00 Pulse Ox 97 06/07/22 08:00 FiO2 Intake & Output 06/06/22 06/07/22 06/07/22 18:59 06:59 18:59 Intake Total 1110 Output Total 500 Balance 1110 -500 Intake: Intake, IV Titration 750 Amount Ampicillin-Sulbactam 3 gm 100 In Sodium Chloride 0.9% 100 ml @ 200 mls/hr IVPB Q6HR [facility] Rx#:[id number] Sodium Chloride 0.9% 1, 600 000 ml @ 75 mls/hr IV . [id number] [facility] Rx#:[id number] ceFAZolin 2 gm In Sodium 50 Chloride 0.9% 50 ml @ 100 mls/hr IVPB Q8HR [facility] Rx# :[id number] Oral 360 Output: Urine 500 Other: Voiding Method Toilet Urinal - Labs CBC & Chem 7: 06/07/22 04:36 06/07/22 04:36 Labs: Abnormal Lab Results - Last 24 Hours (Table) 06/07/22 06/07/22 Range/Units 04:36 04:36 RBC 3.85 L (4.40-5.60) X 10*6/uL Hgb 12.4 L (13.0-17.0) g/dL Hct 37.4 L (39.6-50.0) % MCV 97.1 H (80.0-97.0) fL MCH 32.2 H (27.0-32.0) pg Glucose 113 H (70-110) mg/dL Calcium 8.3 L (8.7-10.3) mg/dL Microbiology - Last 24 Hours (Table) 06/03/22 20:45 Blood Culture - Preliminary Blood No Growth after 72 hours 06/03/22 20:30 Blood Culture - Preliminary Blood No Growth after 72 hours
--- NOTE | 2022-06-07 15:38 | P.PN ---
Subjective Progress Note Date: 06/07/22 Principal diagnosis: Right lower extremity cellulitis Patient is 82 year old male presenting to the hospital with increasing swelling redness of the right lower extremity has been diagnosed with a cellulitis Doppler has been negative for DVT. On today's evaluation is 06/07/2022, the patient continues to be afebrile, the patient is breathing comfortably on room air, the patient right leg the redness as well as swelling has decreased in intensity, the patient denies having any chest pain shortness of breath or cough no abdominal pain or diarrhea Objective - Vital Signs Vital signs: Vital Signs Temp 98.2 F 06/07/22 08:00 Pulse 99 06/07/22 08:00 Resp 18 06/07/22 08:00 BP 116/70 06/07/22 08:00 Pulse Ox 97 06/07/22 08:00 FiO2 Intake & Output 06/06/22 06/07/22 06/07/22 18:59 06:59 18:59 Intake Total 1110 Output Total 500 Balance 1110 -500 Intake: Intake, IV Titration 750 Amount Ampicillin-Sulbactam 3 gm 100 In Sodium Chloride 0.9% 100 ml @ 200 mls/hr IVPB Q6HR [facility] Rx#:[id number] Sodium Chloride 0.9% 1, 600 000 ml @ 75 mls/hr IV . [id number] [facility] Rx#:[id number] ceFAZolin 2 gm In Sodium 50 Chloride 0.9% 50 ml @ 100 mls/hr IVPB Q8HR [facility] Rx# :[id number] Oral 360 Output: Urine 500 Other: Voiding Method Toilet Urinal - Exam GENERAL DESCRIPTION: An elderly male lying in bed in no distress RESPIRATORY SYSTEM: Unlabored breathing , decreased breath sounds at bases HEART: S1 S2 regular rate and rhythm , ABDOMEN: Soft , no tenderness EXTREMITIES: Swelling redness of the right lower extremity has decreased in intensity - Labs CBC & Chem 7: 06/07/22 04:36 06/07/22 04:36 Labs: Abnormal Lab Results - Last 24 Hours (Table) 06/07/22 06/07/22 Range/Units 04:36 04:36 RBC 3.85 L (4.40-5.60) X 10*6/uL Hgb 12.4 L (13.0-17.0) g/dL Hct 37.4 L (39.6-50.0) % MCV 97.1 H (80.0-97.0) fL MCH 32.2 H (27.0-32.0) pg Glucose 113 H (70-110) mg/dL Calcium 8.3 L (8.7-10.3) mg/dL Microbiology - Last 24 Hours (Table) 06/03/22 20:45 Blood Culture - Preliminary Blood No Growth after 72 hours 06/03/22 20:30 Blood Culture - Preliminary Blood No Growth after 72 hours Assessment and Plan (1) Cellulitis of right lower extremity Current Visit: Yes Status: Acute Code(s): L03.115 - CELLULITIS OF RIGHT LOWER LIMB SNOMED Code(s): 625985967 [facility] patient have fever elevated white count elevated lactic acid sources include right lower extremity cellulitis in this patient with diffuse swelling redness likely streptococcal disease failing outpatient oral Augmentin therapy more likely because of the burden of disease. 2 Yariel wrap to the right leg from just above the toe to below the knee change daily. 3patient has shown clinical improvement as for his cellulitis is concerned white count is down to normal blood culture negative continue, patient to continue with Unasyn and monitor clinical course closely Time with Patient: Less than 30
[2022-06-07] MEDS: ASPIRIN 81 MG PO SCH (17:18)
[2022-06-07] MEDS: ATORVASTATIN 20 MG TAB PO SCH (17:18)
[2022-06-08] MEDS: AMPICILLIN-SULBACTAM 3 GM in SODIUM CHLORIDE 0.9% 100 ML IVPB SCH ×2 (05:27→12:21)
[2022-06-08] MEDS: FUROSEMIDE 20 MG TAB PO SCH (07:46)
[2022-06-08] MEDS: SPIRONOLACTONE 25 MG TAB PO SCH (07:46)
[2022-06-08] MEDS: APIXABAN 2.5 MG TABLET PO SCH (07:47)
[2022-06-08] MEDS: PANTOPRAZOLE 40 MG TABLET PO SCH (07:47)
[2022-06-08] MEDS: GABAPENTIN 400 MG CAP PO SCH ×2 (07:47→12:21)
[2022-06-08] MEDS: oxyCODONE-APAP 5-325MG 1 EACH TAB PO PRN (07:47)
[2022-06-08] MEDS: FAMOTIDINE 20 MG TAB PO SCH (07:47)
[2022-06-08 09:14] VITALS: BP 129/69; PULSE 106; RESP 17; TEMP 98.9
--- NOTE | 2022-06-08 11:48 | P.DS ---
Providers Date of admission: 06/04/22 08:27 Expected date of discharge: 06/08/22 Attending physician: Sang Singleton MD Consults: 06/03/22 20:41 Consult Physician Routine Consulting Provider: Demetrius Albrecht Consult Reason/Comments: Cellulitis Do you want consulting provider notified?: Yes Primary care physician: Ar Boyle Hospital Course: Discharge Diagnosis: Right lower extremity cellulitis with severe sepsis Constipation A fib HTN, controlled HLD Compensated CHF, unknown type Hospital Course: The patient is a 82-year-old male withA. fib on Eliquis, hypertension, and hyperlipidemia who presents to the emergency department with complaints of right lower extremity pain and swelling. The patient was recently admitted to the hospital from 05/30 - 06/01 for right lower extremity cellulitis and was discharged home on Augmentin. His redness and swelling continued to worsen so he represented to the ER. In the ER he underwent an extensive evaluation. Laboratory analysis was remarkable for lactic acid 12.7, white blood cell count 12.1. He underwent a lower extremity venous Doppler which was negative for DVT. Arrangements are made for admission. He was started on cephalexin and vancomycin. Infectious disease was consulted and stopped vanco. The next day the erythema was more intense and edema was increased and he was transitioned to unasyn. He continued to do well and his cellulitis and edema improved. He was determined stable for discharge home. Follow-up: Dr. Boyle, [facility], D/W ID and augmentin increased to 1000/62.5 BID for 10 days. Patient seen and examined at bedside. His pain is much better, no nausea, no diarrhea. No complaints currrently. Vital signs reviewed and stable. General: nontoxic, no distress, appears at stated age Derm: erythema left lower extremity from foot to knee with edema, skin sloughing, and some weeping, has improved significantly and how edematous and that it has been since admission. Head: atraumatic, normocephalic, symmetric Eyes: EOMI, no lid lag, anicteric sclera Mouth: no lip lesion, mucus membranes moist Cardiovascular: S1S2 reg, no murmur, positive posterior tibial pulse bilateral, Lungs: CTA bilateral, no rhonchi, no rales , no accessory muscle use Abdominal: soft, nontender to palpation, no guarding, no appreciable organomegaly Ext: no gross muscle atrophy, no edema, no contractures Neuro: CN II-XI grossly intact, no focal neuro deficits Psych: Alert, oriented, appropriate affect A total of 35 minutes of time were spent preparing this complex discharge summary. Patient was discharged on 06/08/22. Patient Condition at Discharge: Stable Plan - Discharge Summary New Discharge Prescriptions: New oxyCODONE-APAP 5-325MG [Percocet 5-325 mg] 1 each PO Q4HR PRN #12 tab PRN Reason: Severe Pain (Scale 7 To 10) Amoxicillin/Potassium Clav [Augmentin Xr 1,000-62.5 Tab] 1 tab PO Q12H #20 tab Continue Simvastatin [Zocor] 40 mg PO W/SUPPER Aspirin EC [Ecotrin Low Dose] 81 mg PO W/SUPPER Apixaban [Eliquis] 2.5 mg PO BID Omeprazole 20 mg PO DAILY Spironolactone [Aldactone] 50 mg PO DAILY prednisoLONE ACETATE 1% OPHTH [Pred Forte 1%] 1 drop LEFT EYE MOWEFR@2100 Gabapentin 800 mg PO ACHS Furosemide [Lasix] 60 mg PO DAILY Focus Select Areds2 1 tab PO BID No Action Amoxic-Pot Clav 875-125Mg [Augmentin 875-125] 1 tab PO BID 10 Days #20 tab Discharge Medication List Apixaban [Eliquis] 2.5 mg PO BID 03/30/19 [History] Aspirin EC [Ecotrin Low Dose] 81 mg PO W/SUPPER 03/30/19 [History] Omeprazole 20 mg PO DAILY 03/30/19 [History] Simvastatin [Zocor] 40 mg PO W/SUPPER 03/30/19 [History] Focus Select Areds2 1 tab PO BID 05/30/22 [History] Furosemide [Lasix] 60 mg PO DAILY 05/30/22 [History] Gabapentin 800 mg PO ACHS 05/30/22 [History] Spironolactone [Aldactone] 50 mg PO DAILY 05/30/22 [History] prednisoLONE ACETATE 1% OPHTH [Pred Forte 1%] 1 drop LEFT EYE MOWEFR@2100 05/30/22 [History] Amoxic-Pot Clav 875-125Mg [Augmentin 875-125] 1 tab PO BID 10 Days #20 tab 06/01/22 [Rx] Amoxicillin/Potassium Clav [Augmentin Xr 1,000-62.5 Tab] 1 tab PO Q12H #20 tab 06/08/22 [Rx] oxyCODONE-APAP 5-325MG [Percocet 5-325 mg] 1 each PO Q4HR PRN #12 tab 06/08/22 [Rx] Follow up Appointment(s)/Referral(s): Ar Boyle MD [Primary Care Provider] - 1-2 days [facility], [REFERRING] - 1 Week Care,[facility] [NON-STAFF] - 1 Week Patient Instructions/Handouts: Cellulitis (ED), Cellulitis (GEN) Activity/Diet/Wound Care/Special Instructions: Special Instructions: As tolerated Keep left leg elevated Use AMELIA Wrap for the next week, can then transition to compression stocking Keep skin moist with scent free, hypoallergenic creams Heart healthy low sodium diet [facility] health has been arranged. Discharge Disposition: HOME WITH HOME HEALTH SERVICES
== END 2022-06-08 14:25 | disposition home health service (06) | DRG 872 ==
LOC: EC 11:04 → 6NMEDSUR 20:41 → OBSVTOIN 06-04 08:27
PROVIDERS: ADMIT Internal Medicine; ATTEND Internal Medicine
DX: A41.9 Sepsis, unspecified organism (principal); E87.2 Acidosis; L03.115 Cellulitis of right lower limb; E78.5 Hyperlipidemia, unspecified; I11.0 Hypertensive heart disease with heart failure; I48.91 Unspecified atrial fibrillation; I50.9 Heart failure, unspecified; K21.9 Gastro-esophageal reflux disease without esophagitis; G62.9 Polyneuropathy, unspecified; K59.00 Constipation, unspecified; R65.20 Severe sepsis without septic shock; Z79.01 Long term (current) use of anticoagulants; Z79.899 Other long term (current) drug therapy; Z95.1 Presence of aortocoronary bypass graft; Z94.7 Corneal transplant status; Z79.2 Long term (current) use of antibiotics
CPT/HCPCS: 36415; 80048; 80053; 82550; 82553; 83605; 85025; 85027; 85652; 87040

== ENCOUNTER → 2023-11-18 | Outpatient (CLI) | payer MEDICARE ==
[2023-11-18 15:49] LABS: Basophils # (A) 0.07 X 10*3/uL (0.00-0.10); Basophils % (A) 1.2 %; Eosinophils # (A) 0.28 X 10*3/uL (0.04-0.35); HCT 46.8 % (39.6-50.0); HGB 15.6 g/dL (13.0-17.0); Lymphocytes # (A) 1.65 X 10*3/uL (0.90-5.00); Lymphocytes % (A) 29.2 %; MCH 32.2 pg (27.0-32.0); MCHC 33.3 g/dL (32.0-37.0); MCV 96.7 FL (80.0-97.0); Mean Platelet Volume 9.8 FL (9.5-12.2); Monocytes # (A) 0.52 X 10*3/uL (0.20-1.00); Monocytes % (A) 9.2 %; NRBC Per 100 WBC 0 X 10*3/uL (0.00-0.01); Neutrophils % (A) 54.9 %; Platelet Count 287 X 10*3/uL (140-440); RBC 4.84 X 10*6/uL (4.40-5.60); RDW 12.9 % (11.5-14.5); WBC 5.65 X 10*3/uL (4.50-10.00)
[2023-11-18 16:30] LABS: ALT 12 U/L (10-49); AST 15 U/L (14-35); Albumin 4.2 g/dL (3.8-4.9); Alkaline Phosphatase 141 U/L (41-126); BUN/Creat Ratio 20.69 Ratio (12.00-20.00); Blood Urea Nitrogen 26.9 mg/dL (9.0-27.0); Calcium 9.6 mg/dL (8.7-10.3); Carbon Dioxide 27.9 mmol/L (21.6-31.8); Chloride 102 mmol/L (96-109); Chol/HDL Ratio 6.85 Ratio; Glucose 96 mg/dL (70-110); LDL Cholesterol,Calculated 133.7 mg/dL (0.0-131.0); Potassium 4.6 mmol/L (3.5-5.5); Sodium 141 mmol/L (135-145); Total Bilirubin 0.6 mg/dL (0.3-1.2); Total Protein 6.2 g/dL (6.2-8.2)
== END | disposition home or self-care (01) ==
LOC: LABWHC1 09:27
PROVIDERS: ATTEND Family Medicine
DX: Z11.59 Encounter for screening for other viral diseases (principal); E78.5 Hyperlipidemia, unspecified
CPT/HCPCS: 36415; 80053; 80061; 85025; 86803